=== PATIENT | female | born 1955 | race Two or more races ===

== ENCOUNTER 2022-02-22 09:19 | Outpatient (REF) | payer MEDICARE, SELFPAY ==
[2022-02-22 11:05] LABS: Alanine Aminotransferase 28 U/L (0-31); Albumin Level 4.4 g/dL (3.5-5.0); Alkaline Phosphatase 98 U/L (39-117); Anion Gap 10 (12-20); Aspartate Amino Transferase 28 U/L (5-31); Bilirubin Total 0.8 mg/dL (0.0-1.0); Blood Urea Nitrogen 22 mg/dL (9-16); Calcium 9.8 mg/dL (8.4-10.2); Carbon Dioxide 32 mmol/L (22-29); Chloride 101 mmol/L (96-108); Cholesterol 264 mg/dL; Estimated Glomerular Filt Rate > 60; Glucose Fasting 86 mg/dL (60-99); HDL Cholesterol 38 mg/dL; LDL Cholesterol Calculated 153 mg/dl; Potassium 3.9 mmol/L (3.3-5.1); Sodium 139 mmol/L (135-145); Total Protein 7.1 g/dL (6.5-8.0); Triglycerides 368 mg/dL
== END 2022-02-22 09:20 | disposition home or self-care (01) ==
LOC: HO.LAB 09:19
PROVIDERS: PCP Internal Medicine; Visit Provider Internal Medicine
DX: E78.5 Hyperlipidemia, unspecified (principal); I10 Essential (primary) hypertension; R74.8 Abnormal levels of other serum enzymes
CPT/HCPCS: 36415; 80053; 80061; 82550

== ENCOUNTER 2022-03-16 07:22 | Day surgery (SDC) | payer MEDICARE, SELFPAY ==
[2022-03-16 06:24] VITALS: BMI 30.8
[2022-03-16 08:00] VITALS: BP 164/98; PULSE 78; RESP 18; TEMP 36.1; O2SAT 96
[2022-03-16] MEDS: Lactated Ringers 1,000 ML 100 ML IVCONT (08:26)
--- NOTE | 2022-03-16 09:15 | MHC.SHP ---
Pre-Procedural Eval Section A Date of Service: 03/16/22 Section B Chief Complaint: screening Details of Present Illness: see H&P no changes Relevant Family History (Specify if Yes): No Relevant Social History: None Present Medications: see Short Stay Collaborative assessment Medical History: No relevant PMH History of Previous Operations: No relevant previous surgery Allergies: Allergies Allergy/AdvReac Type Severity Reaction Status Date / Time solifenacin [From Vesicare] AdvReac Intermediate Blurry Verified 02/21/22 09:22 Vision Review of Systems Sugical H&P ROS: Negative: Constitution, Cardiovascular, Respiratory, Neurological, Psychiatric, Hem-Onc, Allergic/Immunologic, Gastrointestinal, Genitourinary, Musculoskeletal, Integumentary, Endocrine and Eyes/Ears/Nose/Throat Exam Surgical H&P Exam: Normal: HEENT, Normal: Heart, Normal: Lungs, Normal: Extremities, Normal: Abdomen, Normal: Skin and Normal: Neurological Plan Diagnosis/Plan: Unchanged I have reviewed the history and physical and performed a pertinent physical examination on my patient. No changes have occurred unless specified. Time Spent With Patient Time: Total time managing care of this patient today ____ minutes.
--- NOTE | 2022-03-16 09:51 | PM.OP ---
Brief Operative Note Date of Service: 03/16/22 Pre-op diagnosis: screening Post-op diagnosis: same Procedure: colonoscopy Surgeon: Jose D Schulz Anesthesia: MAC Was an Machine Silk Screen Printer used for this Procedure?: No Estimated blood loss (mL): 0 Pathology: none sent Condition: stable Disposition: PACU
[2022-03-16 09:57] VITALS: BP 119/77; PULSE 78; RESP 18; TEMP 36.1; O2SAT 96
[2022-03-16 10:12] VITALS: BP 123/81; PULSE 74; RESP 18; TEMP 37.1; O2SAT 96
--- NOTE | 2022-03-16 11:05 | OP_ITS ---
SURGEON: Jose D Schulz MD INDICATIONS: Colon cancer screening. PREOPERATIVE DIAGNOSIS: POSTOPERATIVE DIAGNOSIS: PROCEDURE PERFORMED: Colonoscopy to the terminal ileum. ESTIMATED BLOOD LOSS: COMPLICATIONS: ANESTHESIA: Monitored anesthesia care. ASSISTANTS: SPECIMENS: DESCRIPTION OF PROCEDURE: The procedure was performed on 03/16/2022. The history and physical was performed. The risks and benefits of the procedure were explained to the patient. Informed consent was obtained. The patient was placed in the left lateral decubitus position. A digital rectal exam was performed and was found to be normal. The Olympus pediatric video colonoscope was introduced into the rectum and advanced to the cecum without difficulty. The cecum was identified by transillumination, palpation, and identification of the ileocecal valve. Abdominal wall pressure was used to assist in advancement of the scope due to looping in the sigmoid. Examination was performed. The scope was removed. She tolerated the procedure well and was taken to the recovery area in stable condition. FINDINGS: The terminal ileum was normal. The visualized colonic mucosa was normal. The quality of the prep was good. No polyps were identified. Retroflexed examination showed moderate-sized internal hemorrhoids. IMPRESSION: Normal colonoscopy. RECOMMENDATION: 1. Follow up as needed. 2. Repeat colonoscopy is recommended in 10 years for average risk individuals. MD MAGDALENO Tanner/NOAH / [id number]
--- NOTE | 2022-03-16 13:05 | HO.ANESPROP2 ---
[facility] Active Problems Active Problems: All Active Problems (Updated 02/21/22 @ 09:36 by Senait Del Rio MD) Essential hypertension (Acute) Obesity (BMI 30-39.9) (Acute) Pure hypercholesterolemia (Acute) Elevated CK (Acute) Shortness of breath (Acute) Family History Family History Mother Mental health disorder Father Mesothelioma Family history of problems with anesthesia: No Surgical History Surgical History (Updated 03/15/22 @ 12:31 by Alexsandra Erickson RN) History of dacryocystorhinostomy History of hand surgery History of lung surgery History of parathyroid surgery History of Problems with Anesthesia: No Social History Social History (Updated 02/21/22 @ 09:31 by Senait Del Rio MD) Housing: House Alcohol intake: current Alcohol intake frequency: holidays/special occasions only Alcohol type: hard liquor Patient Tobacco Use Status: Never used Tobacco e-Cigarette/Vaping Use: Never Used Second Hand Smoke Exposure: No Are you DNR?: No Advance Directives: No Advance Directives Information Provided: Yes service: No Current occupational status: employed Current occupational exposures/hazards: No Cognitive needs: No Hearing needs: No Vision needs: Yes Meds Allergies Allergy/AdvReac Type Severity Reaction Status Date / Time solifenacin [From Vesicare] AdvReac Intermediate Blurry Verified 02/21/22 09:22 Vision Home Medications Medication Instructions Recorded Confirmed Last Taken Type amlodipine 5 mg tablet 5 mg PO DAILY 02/21/22 03/16/22 03/16/22 History ezetimibe 10 mg tablet 10 mg PO DAILY 02/21/22 02/21/22 Unknown History hydrochlorothiazide 25 mg tablet 25 mg PO DAILY 02/21/22 03/16/22 03/13/22 History Exam Exam Date and Time: March 16, 2022 1305 Height,Weight and Vital Signs: Height 5 ft 7 in Weight 89.358 kg Last Vital Signs Temp 98.8 F 03/16/22 10:12 Pulse 74 03/16/22 10:12 Resp 18 03/16/22 10:12 BP 123/81 03/16/22 10:12 Pulse Ox 96 03/16/22 10:12 O2 Del Method 03/16/22 10:12 Airway Mallampati Class: II TM Dist: >3cm Neck ROM: Full Heart: rr Lungs: cta Assessment and Plan Final Anesthetic Review Family History of Problems with Anesthesia: No History of Problems with Anesthesia: No NPO: Yes ASA Class: II Final Preanesthetic Review: No Changes in Pt Med Stat, Meds/Allgs Chart Reviewed, Consent Obtained/Reviewed and Anes Risks/Benef Reviewed Patient Risk: Low Procedure Risk: Low Anesthetic Plan Anesthetic Plan: MAC: Disposition: Standard PACU
== END 2022-03-16 10:45 | disposition home or self-care (01) ==
PROVIDERS: PCP Internal Medicine; Visit Provider Internal Medicine Gastroenterology
PROC: 0DJD8ZZ Inspection of Lower Intestinal Tract, Via Natural or Artificial Opening Endoscopic (ICD-10-PCS; CPT 45378; principal; 2022-03-16 09:00)
DX: Z12.11 Encounter for screening for malignant neoplasm of colon (principal); K64.8 Other hemorrhoids; I10 Essential (primary) hypertension; E78.00 Pure hypercholesterolemia, unspecified; E21.3 Hyperparathyroidism, unspecified; Z79.899 Other long term (current) drug therapy; Z88.8 Allergy status to other drugs, medicaments and biological substances
CPT/HCPCS: G0121

== ENCOUNTER 2022-07-30 16:09 | Outpatient (REF) | payer MEDICARE, SELFPAY ==
[2022-07-30 18:31] LABS: Anion Gap 13 (12-20); Blood Urea Nitrogen 21 mg/dL (9-16); Calcium 9.6 mg/dL (8.4-10.2); Carbon Dioxide 30 mmol/L (22-29); Chloride 103 mmol/L (96-108); Estimated Glomerular Filt Rate > 60; Glucose Random 96 mg/dL (60-115); Potassium 3.8 mmol/L (3.3-5.1); Sodium 142 mmol/L (135-145)
[2022-07-30 18:43] LABS: Erythrocyte Sedimentation Rate 18 MM/HR (0-20)
== END 2022-07-30 16:10 | disposition home or self-care (01) ==
LOC: HO.LAB 16:09
PROVIDERS: PCP Internal Medicine; Visit Provider Physician Assistant
DX: R74.8 Abnormal levels of other serum enzymes (principal)
CPT/HCPCS: 36415; 80048; 82550; 85652

== ENCOUNTER 2022-08-08 07:03 | Outpatient (REF) | payer MEDICARE, SELFPAY ==
[2022-08-08 08:01] LABS: Alanine Aminotransferase 43 U/L (0-31); Albumin Level 4.1 g/dL (3.5-5.0); Alkaline Phosphatase 100 U/L (39-117); Anion Gap 12 (12-20); Aspartate Amino Transferase 32 U/L (5-31); Bilirubin Total 1.1 mg/dL (0.0-1.0); Blood Urea Nitrogen 25 mg/dL (9-16); Calcium 9.3 mg/dL (8.4-10.2); Carbon Dioxide 27 mmol/L (22-29); Chloride 106 mmol/L (96-108); Estimated Glomerular Filt Rate > 60; Glucose Random 102 mg/dL (60-115); Potassium 3.9 mmol/L (3.3-5.1); Sodium 141 mmol/L (135-145); Total Protein 6.6 g/dL (6.5-8.0)
[2022-08-08 08:18] LABS: Thyroid Stimulating Hormone 1.39 uIU/mL (0.32-4.0)
[2022-08-10 16:33] LABS: Calcium (PTHI) 9.3 mg/dL (8.6-10.4); PTHI 43 pg/mL (16-77)
== END 2022-08-08 07:04 | disposition home or self-care (01) ==
LOC: HO.LAB 07:03
PROVIDERS: PCP Internal Medicine; Visit Provider Internal Medicine
DX: R74.8 Abnormal levels of other serum enzymes (principal); E66.9 Obesity, unspecified
CPT/HCPCS: 36415; 80053; 82550; 83970; 84443

== ENCOUNTER → 2022-08-28 15:39 | Outpatient (BNVA) | payer MEDICARE, SELFPAY | PROVIDERS: PCP Internal Medicine; Referring Provider Physician Assistant; Visit Provider Surgery | DX: R74.8 Abnormal levels of other serum enzymes (principal) | CPT/HCPCS: 99202 ==

== ENCOUNTER 2022-08-31 10:56 | Outpatient (REF) | payer MEDICARE, SELFPAY ==
[2022-08-31 12:30] LABS: Troponin-I High Sensitivity < 2.7 ng/L (<3.5-17.0)
[2022-08-31 12:39] LABS: Alanine Aminotransferase 43 U/L (0-31); Albumin Level 4.3 g/dL (3.5-5.0); Alkaline Phosphatase 94 U/L (39-117); Anion Gap 13 (12-20); Aspartate Amino Transferase 27 U/L (5-31); Bilirubin Total 1.1 mg/dL (0.0-1.0); Blood Urea Nitrogen 23 mg/dL (9-16); Calcium 9.8 mg/dL (8.4-10.2); Carbon Dioxide 25 mmol/L (22-29); Chloride 103 mmol/L (96-108); Estimated Glomerular Filt Rate > 60; Glucose Random 85 mg/dL (60-115); Lactate Dehydrogenase 231 U/L (122-220); Sodium 137 mmol/L (135-145); Total Protein 7.2 g/dL (6.5-8.0)
[2022-09-07 15:18] LABS: Aldolase 8.1 U/L (<=8.1)
== END 2022-08-31 10:57 | disposition home or self-care (01) ==
LOC: HO.LAB 10:56
PROVIDERS: PCP Internal Medicine; Visit Provider Internal Medicine
DX: R74.8 Abnormal levels of other serum enzymes (principal)
CPT/HCPCS: 36415; 80053; 82085; 82550; 83615; 84484

== ENCOUNTER 2022-09-04 10:07 | Outpatient (REF) | payer MEDICARE, SELFPAY ==
[2022-09-04 10:32] VITALS: BP 142/70; PULSE 71; RESP 15; TEMP 36; O2SAT 95
[2022-09-04 10:34] VITALS: BMI 31.8
[2022-09-04 11:32] VITALS: BP 164/76; PULSE 67; RESP 16; O2SAT 94
--- NOTE | 2022-09-04 11:36 | P.OP_ITS ---
Operative Note Operative Note Date of Service: 09/04/22 Narrative: Preoperative diagnosis: Diffuse muscle stiffness, elevated CK levels, possible polymyositis Postoperative diagnosis: Same Procedure: Right leg muscle biopsy (right vastus lateralis muscle). Surgeon: Aakash Salazar MD Dentofacial Orthopedics Dentist: None Anesthesia: Sensorcaine 0.5% with epinephrine, bicarbonate Indications for procedure: 67-year-old female patient with complaints of diffuse muscle stiffness making ambulation difficult. She has persistently elevated CK levels despite resting laxation. She presents today for muscle biopsy to evaluate for polymyositis Operative findings: Normal appearing muscle Specimen: Muscle biopsy x2 right leg Estimated blood loss: 2 mL Complications: None Procedure details: Patient was brought to the minor surgery suite placed in a supine position. After assuring informed consent the patient is upper right leg was prepped with Betadine and draped in a sterile fashion. A longitudinal incision was then made over the lateral right thigh measuring approximately 4 cm in length. The incision was carried out through subcutaneous tissue through muscle fascia and up to the vastus lateralis muscle. Blunt dissection was then used to elevate portion of the muscle measuring approximately 3 cm in length and 0.5 cm wide. This was placed within a muscle biopsy clamp and the muscle excised using Metzenbaum scissors. A 2nd specimen was obtained in a similar fashion immediately wrapped in saline soaked gauze. This was immediately sent for pathologic evaluation. After assuring hemostasis, the deep subcutaneous tissue was reapproximated using interrupted 3-0 Polysorb sutures. Dermis was reapproximated using interrupted 3-0 Polysorb sutures. Skin was closed using a running subcuticular 4-0 Polysorb suture. Steri-Strips, 2 x 2 gauze and Tegaderm were then applied. The patient tolerated the procedure well. She was discharged to home in stable condition.
== END 2022-09-04 10:08 | disposition home or self-care (01) ==
LOC: HO.MS 10:07
PROVIDERS: PCP Internal Medicine; Visit Provider Surgery
PROC: (CPT 20200; principal; 2022-09-04 10:30)
DX: R74.8 Abnormal levels of other serum enzymes (principal)
CPT/HCPCS: 20200; 88300; 88305; 88313; 88319; 88341; 88342; 88348

== ENCOUNTER 2022-09-18 09:59 | Outpatient (REF) | payer MEDICARE, SELFPAY ==
[2022-09-21 20:42] LABS: CK-BB None Detected (None Detected); CK-MB 5 % (<5); CK-MM 89 % (95-100); Creatine Kinase,Total,Serum 432 U/L (29-143)
== END 2022-09-18 10:00 | disposition home or self-care (01) ==
LOC: HO.LAB 09:59
PROVIDERS: PCP Internal Medicine; Visit Provider Internal Medicine
DX: R74.8 Abnormal levels of other serum enzymes (principal)
CPT/HCPCS: 36415; 82550; 82552

== ENCOUNTER → 2022-09-20 09:41 | Outpatient (BNVA) | payer MEDICARE, SELFPAY | PROVIDERS: PCP Internal Medicine; Visit Provider Surgery ==

== ENCOUNTER 2022-09-21 12:44 | Outpatient (REF) | payer MEDICARE, SELFPAY ==
[2022-09-21 13:44] LABS: Anion Gap 15 (12-20); Blood Urea Nitrogen 21 mg/dL (9-16); Carbon Dioxide 26 mmol/L (22-29); Chloride 103 mmol/L (96-108); Estimated Glomerular Filt Rate > 60; Glucose Random 95 mg/dL (60-115); Magnesium 2.1 mg/dL (1.6-2.6); Potassium 3.4 mmol/L (3.3-5.1); Sodium 141 mmol/L (135-145)
[2022-09-21 15:05] LABS: Creatinine Urine 71.26 mg/dL; Microalbum/Creatinine Ratio Ur 8.4 ug/mg cr
[2022-09-22 10:09] LABS: Carbohydrate Antigen 19-9 22 U/mL (<34)
[2022-09-24 09:53] LABS: IgA 112 mg/dL (70-320); IgG 1280 mg/dL (600-1540); IgM 56 mg/dL (50-300)
[2022-09-28 11:58] LABS: Vitamin C 0.9 mg/dL (0.3-2.7)
== END 2022-09-21 12:45 | disposition home or self-care (01) ==
LOC: HO.LAB 12:44
PROVIDERS: PCP Physician Assistant; Visit Provider Physician Assistant
DX: R74.8 Abnormal levels of other serum enzymes (principal)
CPT/HCPCS: 36415; 80048; 82043; 82180; 82550; 82784; 83735; 86301

== ENCOUNTER 2022-10-03 10:40 | Outpatient (REF) | payer MEDICARE, SELFPAY ==
[2022-10-03 12:22] LABS: Rheumatoid Factor < 13.0 IU/mL (<15.0)
[2022-10-08 15:48] LABS: Cyclic Citrullinated Peptide <16 UNITS
[2022-10-08 23:03] LABS: Anti DNA DS Antibody 1 IU/mL
[2022-10-11 13:54] LABS: Anti Nuclear Antibody Screen POSITIVE (NEGATIVE)
== END 2022-10-03 10:41 | disposition home or self-care (01) ==
LOC: HO.LAB 10:40
PROVIDERS: PCP Physician Assistant; Visit Provider Physician Assistant
DX: M25.50 Pain in unspecified joint (principal)
CPT/HCPCS: 36415; 86038; 86039; 86200; 86225; 86431

== ENCOUNTER 2022-10-05 13:26 | Outpatient (REF) | payer MEDICARE, SELFPAY ==
[2022-10-09 02:27] LABS: A. Phagocytphilium DNA,RT-PCR NOT DETECTED (NOT DETECTED); Babesia Microti DNA, RT-PCR NOT DETECTED (NOT DETECTED); Borrelia Miyamotoi,DNA RT-PCR NOT DETECTED (NOT DETECTED); E.Chaffeensis DNA RT-PCR NOT DETECTED (NOT DETECTED); Lyme(Borrelia ssp)DNA RT-PCR NOT DETECTED (NOT DETECTED)
[2022-10-12 17:18] LABS: Vitamin C 0.7 mg/dL (0.3-2.7)
== END 2022-10-05 13:27 | disposition home or self-care (01) ==
LOC: HO.LAB 13:26
PROVIDERS: PCP Physician Assistant; Visit Provider Physician Assistant
DX: R74.8 Abnormal levels of other serum enzymes (principal)
CPT/HCPCS: 36415; 82180; 82550; 87798; 87801

== ENCOUNTER 2022-10-09 16:02 | Outpatient (REF) | payer MEDICARE, MEDICAID, SELFPAY ==
--- NOTE | ~2022-10-09 | US_ITS ---
EXAMINATION: US RETROPERITONEAL LIMITED (RENAL ONLY) CLINICAL INFORMATION: Abnormal levels of other serum enzymes. Elevated CK level. COMPARISON: None available. TECHNIQUE: Real-time imaging of the kidneys. FINDINGS: RIGHT KIDNEY: 10.5 x 4.9 x 5.4 cm (SAG x AP x TRV). The kidney is normal in size, contour, and echogenicity. Renal cortical thickness is normal. No calculi or focal parenchymal lesions. No hydronephrosis. LEFT KIDNEY: 12.1 x 5.6 x 5.5 cm (SAG x AP x TRV). The kidney is normal in size, contour, and echogenicity. Renal cortical thickness is normal. No renal calculi or hydronephrosis. 1.1 x 1.3 x 1.5 cm simple upper pole parapelvic cyst is seen. No imaging follow-up is recommended. US/US renal BI IMPRESSION: Study within normal limits.
== END 2022-10-09 16:03 | disposition home or self-care (01) ==
LOC: HO.US 16:02
PROVIDERS: Visit Provider Physician Assistant
DX: R74.8 Abnormal levels of other serum enzymes (principal); I10 Essential (primary) hypertension
CPT/HCPCS: 76775

== ENCOUNTER 2022-11-16 11:09 | Outpatient (REF) | payer MEDICARE, SELFPAY ==
--- NOTE | ~2022-11-16 | XR_ITS ---
EXAMINATION: XR SHOULDER, RIGHT XR SHOULDER, LEFT CLINICAL INFORMATION: Pain in the shoulders. COMPARISON: None TECHNIQUE: AP external rotation, Grashey, scapular Y, and axillary views of each shoulder. FINDINGS: RIGHT SHOULDER: Severe glenohumeral osteoarthritis is characterized by nonuniform joint space narrowing, marginal osteophytes, and articular sclerosis. Moderate osteoarthritis is also present at the right acromioclavicular joint. Bones are osteopenic. Soft tissues are unremarkable. LEFT SHOULDER: Moderate glenohumeral osteoarthritis with nonuniform joint space narrowing and marginal osteophytes. Moderate osteoarthritis is also present in the acromioclavicular joint. No fracture or malalignment. Bones are osteopenic. Soft tissues are unremarkable. XR/XR shoulder RT min 2V IMPRESSION: 1. Severe right and moderate left glenohumeral osteoarthritis. 2. Moderate bilateral acromioclavicular osteoarthritis. 3. No acute osseous findings.
--- NOTE | ~2022-11-16 | XR_ITS ---
EXAMINATION: XR HAND, RIGHT XR HAND, LEFT CLINICAL INFORMATION: Pain in the left and right hand. Joint fused. COMPARISON: None available. TECHNIQUE: PA, lateral, and oblique views of each hand. FINDINGS: RIGHT HAND: Severe 1st CMC osteoarthritis is characterized by severe nonuniform joint space narrowing, articular cortical irregularity, articular cortical remodeling, marginal osteophytes, and osteophyte fragmentation. Small marginal osteophytes are present in multiple interphalangeal joints. Minimal osteoarthritis at the triscaphe joint. Joints otherwise relatively well-preserved. Chondrocalcinosis is present in the radiocarpal joint in the region of the TFCC and intrinsic wrist ligaments of the proximal carpal row. Bones are osteopenic. No erosions. LEFT HAND: Status post 1st CMC arthroplasty with trapezium resection and 1st MCP joint arthrodesis with a longitudinal intramedullary screw fusion construct. No appreciable osseous bridging is seen at the 1st MCP joint. Hardware appears appropriately positioned. There is mild multifocal osteoarthritis in the interphalangeal joints. No fracture or malalignment. No erosions. Bones are osteopenic. XR/XR hand LT min 3V IMPRESSION: 1. 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 2. Mild multifocal osteoarthritis in the interphalangeal joints bilaterally. 3. Status post left 1st CMC arthroplasty and 1st MCP joint arthrodesis. No appreciable osseous bridging at the 1st MCP joint. 4. Osteopenia.
--- NOTE | ~2022-11-16 | XR_ITS ---
EXAMINATION: XR SHOULDER, RIGHT XR SHOULDER, LEFT CLINICAL INFORMATION: Pain in the shoulders. COMPARISON: None TECHNIQUE: AP external rotation, Grashey, scapular Y, and axillary views of each shoulder. FINDINGS: RIGHT SHOULDER: Severe glenohumeral osteoarthritis is characterized by nonuniform joint space narrowing, marginal osteophytes, and articular sclerosis. Moderate osteoarthritis is also present at the right acromioclavicular joint. Bones are osteopenic. Soft tissues are unremarkable. LEFT SHOULDER: Moderate glenohumeral osteoarthritis with nonuniform joint space narrowing and marginal osteophytes. Moderate osteoarthritis is also present in the acromioclavicular joint. No fracture or malalignment. Bones are osteopenic. Soft tissues are unremarkable. XR/XR shoulder LT min 2V IMPRESSION: 1. Severe right and moderate left glenohumeral osteoarthritis. 2. Moderate bilateral acromioclavicular osteoarthritis. 3. No acute osseous findings.
--- NOTE | ~2022-11-16 | XR_ITS ---
EXAMINATION: XR HAND, RIGHT XR HAND, LEFT CLINICAL INFORMATION: Pain in the left and right hand. Joint fused. COMPARISON: None available. TECHNIQUE: PA, lateral, and oblique views of each hand. FINDINGS: RIGHT HAND: Severe 1st CMC osteoarthritis is characterized by severe nonuniform joint space narrowing, articular cortical irregularity, articular cortical remodeling, marginal osteophytes, and osteophyte fragmentation. Small marginal osteophytes are present in multiple interphalangeal joints. Minimal osteoarthritis at the triscaphe joint. Joints otherwise relatively well-preserved. Chondrocalcinosis is present in the radiocarpal joint in the region of the TFCC and intrinsic wrist ligaments of the proximal carpal row. Bones are osteopenic. No erosions. LEFT HAND: Status post 1st CMC arthroplasty with trapezium resection and 1st MCP joint arthrodesis with a longitudinal intramedullary screw fusion construct. No appreciable osseous bridging is seen at the 1st MCP joint. Hardware appears appropriately positioned. There is mild multifocal osteoarthritis in the interphalangeal joints. No fracture or malalignment. No erosions. Bones are osteopenic. XR/XR hand RT min 3V IMPRESSION: 1. 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 2. Mild multifocal osteoarthritis in the interphalangeal joints bilaterally. 3. Status post left 1st CMC arthroplasty and 1st MCP joint arthrodesis. No appreciable osseous bridging at the 1st MCP joint. 4. Osteopenia.
== END 2022-11-16 11:10 | disposition home or self-care (01) ==
LOC: HO.XRAY 11:09
PROVIDERS: PCP Physician Assistant; Visit Provider Physician Assistant
DX: M25.511 Pain in right shoulder (principal); M25.512 Pain in left shoulder; M79.641 Pain in right hand; M79.642 Pain in left hand; M62.89 Other specified disorders of muscle
CPT/HCPCS: 36415; 73030; 73130; 82550

== ENCOUNTER 2022-12-14 06:47 | Outpatient (REF) | payer MEDICARE, SELFPAY ==
[2022-12-14 08:42] LABS: Alanine Aminotransferase 45 U/L (0-31); Albumin Level 4.2 g/dL (3.5-5.0); Alkaline Phosphatase 92 U/L (39-117); Anion Gap 14 (12-20); Aspartate Amino Transferase 27 U/L (5-31); Bilirubin Total 0.5 mg/dL (0.0-1.0); Blood Urea Nitrogen 22 mg/dL (9-16); Calcium 9.5 mg/dL (8.4-10.2); Carbon Dioxide 27 mmol/L (22-29); Chloride 104 mmol/L (96-108); Cholesterol 282 mg/dL (<200); Estimated Glomerular Filt Rate > 60; Glucose Fasting 95 mg/dL (60-99); HDL Cholesterol 37 mg/dL (>40); Potassium 3.6 mmol/L (3.3-5.1); Sodium 141 mmol/L (135-145); Total Protein 7.5 g/dL (6.5-8.0); Triglycerides 599 mg/dL (<150)
== END 2022-12-14 06:48 | disposition home or self-care (01) ==
LOC: HO.LAB 06:47
PROVIDERS: PCP Physician Assistant; Referring Provider Internal Medicine; Visit Provider Physician Assistant
DX: M62.89 Other specified disorders of muscle (principal); E78.5 Hyperlipidemia, unspecified; I10 Essential (primary) hypertension
CPT/HCPCS: 36415; 80053; 80061; 82550

== ENCOUNTER 2022-12-20 09:45 | Outpatient (AMB) | payer MEDICARE, SELFPAY ==
[2022-12-20 09:50] VITALS: BP 132/88; PULSE 78; RESP 17; O2SAT 95; BMI 32.0
--- NOTE | 2022-12-20 09:50 | MHC.PC.OV ---
Vital Signs 12/20/22 09:50 Height 5 ft 6 in Weight 198 lb BMI 32.0 BP 132/88 Blood Pressure Location Lt brachial Position Sitting Respiration 17 Pulse 78 Pulse Source Pulse Oximeter Pulse Oximetry (%) 95 Oxygen Delivery Method Room Air Intake Visit Reasons: pe Intake Note: Patient is here today for a physical. Accompanied by: Self / Same As Patient Allergies solifenacin [From Vesicare] Adverse Reaction (Intermediate, Verified 12/20/22 10:08) Blurry Vision Medication List - Last Reconciled 12/20/22 by Herb Flores PA-C amlodipine 5 mg PO DAILY 90 days hydrochlorothiazide 25 mg PO DAILY 90 days Tobacco use date assessed: 09/20/22 Fall risk assessment: No Falls in past year Last assessed Fall Risk: 12/20/22 Dental Screening Dental Screen Date: 12/20/22 Did you have a dental visit in the last 12 months?: Yes Did you have a dental problem in the last 6 months where you did not have access to dental care?: No Was dental information given to patient?: Patient has dentist HPI pe HPI Details Patient is a 67-year-old female here today for an annual physical. Patient has a past medical history significant for hypertension, hyperlipidemia, chronic muscle tightness with elevations in her CPKs. .. Elevated CPK: No clear diagnosis at this time though patient continues to be symptomatic with muscle tightness though no pain or weakness. She is fairly active as she cycles 10-20 miles per day. Was previously on a cholesterol medication which has been stopped due to elevated CPKs as well. Has recently got muscle biopsy without any evidence muscular disease. Has seen wire weaver helper in the past though have not been able to get formal diagnosis for her elevated CPK levels. Of note does elevated SASCHA No her CPK level was able to decrease with increased fluids and vitamin-C / electrolytes which seems to helped decrease her CK levels. She will be trying to establish care with the retail selling specialist /wire weaver helper in near future. She feels comfortable with her CPK levels being around 500. Of note renal functions have been stable. .. Hypertriglyceridemia: Most recent labs have noted elevated triglycerides and total cholesterol. Has been on fibrates in the past though due to his CK levels these have been discontinued. She will like to try vitamin B3( niacin) and continue working on lifestyle modifications .. Hypertension: Blood pressure today in office acceptable. Will continue amlodipine and hydrochlorothiazide. Colon cancer screening: done in 2021- normal repeat 10 years Mammogram: Gets them done [facility] annually up-to-date mammogram DELIVERY SUPERVISOR: Does see a DELIVERY SUPERVISOR Vaccine: Up-to-date with COVID vaccine, tetanus vaccine, shingles vaccine, needs pneumonia vaccine Laboratory Tests 02/22/22 07/30/22 07/30/22 09:34 16:22 16:22 ESR 18 BUN Creatinine Lactate Dehydrogen ase Total Creatine Kin ase 575 H 734 H Triglycerides 368 Cholesterol 264 HDL Cholesterol 08/08/22 08/31/22 08/31/22 07:20 11:14 11:14 ESR BUN 23 H Creatinine 0.80 Lactate Dehydrogen ase 231 H Total Creatine Kin ase 812 H 448 H Triglycerides Cholesterol HDL Cholesterol 09/18/22 10/05/22 11/16/22 10:05 13:45 11:19 ESR BUN Creatinine Lactate Dehydrogen ase Total Creatine Kin ase 508 H 466 H 508 H Triglycerides Cholesterol HDL Cholesterol 12/14/22 06:57 ESR BUN Creatinine 0.81 Lactate Dehydrogen ase Total Creatine Kin ase 501 H Triglycerides 599 H Cholesterol 282 H HDL Cholesterol 37 L [facility] Surgical History History of surgical biopsy (09/04/22) History of dacryocystorhinostomy History of lung surgery History of parathyroid surgery History of hand surgery Family History Mother Mental health disorder Father Mesothelioma Social History (Updated 12/20/22 @ 10:15 by Herb Flores PA-C) Housing: House Alcohol intake: current Alcohol intake frequency: a few times a month Alcohol type: hard liquor Patient Tobacco Use Status: Never used Tobacco e-Cigarette/Vaping Use: Never Used Second Hand Smoke Exposure: No service: No Current occupational status: employed 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 Current occupational exposures/hazards: No Cognitive needs: No Hearing needs: No Vision needs: Yes Questionnaire Thrive Questionnaire Date Thrive assessed: 12/20/22 I am a: Patient What is your living situation today?: I have a steady place to live Within the past 12 months, did the food you bought not last and you didn't have the money to get more?: Never true Within the past 12 months, did you worry whether your food would run out before you got money to buy more?: Never true Do you have trouble paying for medicines?: No Do you have trouble getting transportation to medical appointments?: No Do you have trouble paying your heating and electricity bill?: No Do you have trouble taking care of your child, family member or friend?: No Do you have trouble with day-to-day activities such as bathing, preparing meals, shopping, managing finances, etc.?: No Are you currently unemployed and looking for a job?: No Are you interested in more education?: No Please select the resources that you would like help with: None Currently or been in a relationship where the following occur: no concerns reported MI-7 AMB Questionnaire MI-7 Date MI - 7 assessed: 06/25/22 Source: Developed by Drs. Rayray Varghese, Norah Alfonso, Marty Echavarria and colleagues, with an educational eloina from [employer]. Review of Systems Const Denies body aches, Denies chills, Denies excessive sweating, Denies fatigue, Denies fever(s) and Denies headache(s) Eyes Denies blurry vision ENT Denies dysphagia, Denies vertigo, Denies dizziness, Denies headache(s), Denies hearing loss and Denies tinnitus Card Denies chest pain, Denies chest pain with activity, Denies syncope, Denies irregular heart rhythm and Denies dyspnea Resp Denies chest congestion, Denies cough, Denies hemoptysis, Denies dyspnea and Denies wheezing GI Denies abdominal pain, Denies melena, Denies hematochezia, Denies coffee ground emesis, Denies dysphagia, Denies diarrhea, Denies nausea and Denies vomiting Denies urinary frequency, Denies dysuria, Denies urinary hesitancy and Denies urinary urgency Musc Reports arthralgias, Denies limited range of motion, Denies muscle cramps and Denies muscle weakness Skin/Breast Denies rash and Denies skin ulcer Neuro Denies Abnormal speech present, Denies confusion, Denies vertigo, Denies dizziness, Denies syncope, Denies headache(s), Denies memory loss and Denies seizure-like activity Psych Denies anxiety, Denies confusion, Denies depression, Denies memory loss, Denies panic attacks and Denies paranoia Endo Denies excessive sweating, Denies fatigue, Denies flushing, Denies polydipsia and Denies polyuria Aller/Immun Denies wheezing Physical exam (Primary Care) Vital Signs: Last Vital Signs Pulse 78 12/20/22 09:50 Resp 17 12/20/22 09:50 BP 132/88 12/20/22 09:50 Pulse Ox 95 12/20/22 09:50 Oxygen Delivery Method Room Air 12/20/22 09:50 BMI result Body Mass Index 32.0 BMI Assessment/Plan discussion: High Tobacco/Smoking Status: Tobacco use Status Tobacco use date assessed 09/20/22 12/20/22 09:52 Patient Tobacco Use Status Never used Tobacco 12/20/22 10:15 e-Cigarette/Vaping Use Never Used 12/20/22 10:15 Thrive Assessment: Date of Thrive Assessment Date Thrive assessed 12/20/22 12/20/22 09:58 Currently or been in a relationship where the following occur: no concerns reported Const Other: Obese General: cooperative, comfortable, no acute distress, alert and awake; No confusion Orientation/consciousness: oriented to person, oriented to place, patient oriented x3 and No confusion HENMT Head: Yes normocephalic Ears: external ears normal and TM's normal bilaterally Face and sinus: No sinus tenderness Mouth: Normal oral and palatal mucosa present and tongue normal Teeth and gingiva: dentition normal and gingiva normal Throat: Yes posterior oropharynx normal, Yes tonsils normal and Yes uvula midline Eyes Conjunctivae: conjunctivae normal Sclerae: sclerae normal Pupils: Equal, round and reactive pupils present EOM: EOMs intact bilaterally Direct Ophthalmoscopy: No no photophobia Neck Neck: Yes no lymphadenopathy, No tender and Yes no JVD Thyroid: Thyroid normal Carotids: no bruits Chest Chest palpation & inspection: no tenderness Resp Effort & Inspection: normal respiratory effort, no audible wheezes, not labored and no stridor Auscultation: no crackles, no rales, no rhonchi and no wheezes Cardio Jugular venous distension: no JVD Rate: regular rate, not bradycardic and not tachycardic Rhythm: regular rhythm Bruits: no carotid bruits Peripheral pulses: Peripheral pulses 2+ throughout GI Inspection: Yes normal to inspection, No abdominal wall ecchymosis and No visible herniation Palpation (GI): Soft to palpation, nontender, no guarding, not rigid and No hepatosplenomegaly present Auscultation: normoactive bowel sounds General: Yes no CVA tenderness Back/Spine/Pelvis Back: no CVA tenderness and No back tenderness Cervical Spine: cervical ROM normal Thoracic/Lumbar Spine: thoracic and lumbar spine normal to inspection, straight leg raise negative bilaterally, No thoraco-lumbar ROM limited and No lumbar spinal tenderness Skin Lesions: no lesions Rashes: no rashes Wounds: no wounds Neuro General: oriented to person, oriented to place, patient oriented x3, CN's II-XI intact bilaterally and No confusion Cranial nerves: Yes Equal, round and reactive pupils present and Yes Normal accommodation reflex present Cognition (Neuro): normal cognition Speech: No Abnormal speech present Gait exam (Neuro): Normal gait present Motor exam (neuro): 5/5 motor strength present throughout Extrem Right upper extremity: full ROM; no cyanosis Left upper extremity: full ROM; no cyanosis Right lower extremity: no edema Left lower extremity: no edema Psych Appearance: grossly normal Mental Status: mental status grossly normal Affect: normal affect Attitude: cooperative Thought process: Normal thought process present Assessment and Plan Assessment & Plan (1) Annual physical exam: Code(s): Z00.00 - Encounter for general adult medical examination without abnormal findings (2) Elevated CK: Code(s): R74.8 - Abnormal levels of other serum enzymes Plan: Unclear diagnosis for patient's elevated CPK levels. Unclear if related to her physical activity. Has gotten muscle biopsy without any evidence of muscle disease. Patient's renal function stable and ESR without any elevation. Due to patient's fear renal failure and reassurance will continue to monitor CPK levels on a monthly basis.. She will be trying to establish care with retail selling specialist in near future. (3) Mixed hyperlipidemia: Code(s): E78.2 - Mixed hyperlipidemia Plan: Noted most recent lipid panel showing elevated total cholesterol and very elevated triglycerides. Has stopped cholesterol medication due to elevations her CPK. Explain the risk for pancreatitis with triglycerides above 100 and patient does understand. Will consider restarting fibrate. She will try vitamin B3 first (4) Obese: Code(s): E66.9 - Obesity, unspecified Qualifiers: Obesity type: due to excess calories Obesity classification: adult class 1 (BMI 30 - 34.9) Serious obesity comorbidity presence: without serious comorbidity Body mass index: BMI 32.0-32.9 Qualified Code(s): E66.09 - Other obesity due to excess calories; Z68.32 - Body mass index [BMI] 32.0-32.9, adult Plan: She does understand BMI is over 30 will work on continuing to be physically active and adapting to some better eating habits to reduce her weight. Orders: Orders Vitamin C Today R74.8 - Abnormal levels of other serum enzymes Lipid Panel Today E78.2 - Mixed hyperlipidemia Microalbumin, Random (w Creat) Today I10 - Essential (primary) hypertension Comprehensive [place]. Panel Fast Today I10 - Essential (primary) hypertension Coding Level of Care Code Est Pt Prev Care >65y(30105) Diagnoses Annual physical exam Z00.00 Elevated CK R74.8 Mixed hyperlipidemia E78.2 Class 1 obesity due to excess calories without serious comorbidity with body mass index (BMI) of 32.0 to 32.9 in adult E66.09; Z68.32 Obesity type: due to excess calories Obesity classification: adult class 1 (BMI 30 - 34.9) Serious obesity comorbidity presence: without serious comorbidity Body mass index: BMI 32.0-32.9
== END 2022-12-20 10:41 | disposition home or self-care (01) ==
PROVIDERS: PCP Internal Medicine; Visit Provider Physician Assistant
DX: Z00.00 Encounter for general adult medical examination without abnormal findings (principal); R74.8 Abnormal levels of other serum enzymes; E66.09 Other obesity due to excess calories; Z68.32 Body mass index [BMI] 32.0-32.9, adult; E78.2 Mixed hyperlipidemia
CPT/HCPCS: 99397

== ENCOUNTER 2023-01-11 10:07 | Outpatient (REF) | payer MEDICARE, SELFPAY ==
[2023-01-11 11:42] LABS: Creatinine Urine 35.17 mg/dL; Microalbumin Urine < 5.0 mg/L
[2023-01-14 12:52] LABS: Immunoglobulin A 116 mg/dL (70-320); Immunoglobulin G 1298 mg/dL (600-1540)
[2023-01-17 11:29] LABS: Vitamin C 1.2 mg/dL (0.3-2.7)
== END 2023-01-11 10:08 | disposition home or self-care (01) ==
LOC: HO.LAB 10:07
PROVIDERS: PCP Physician Assistant; Visit Provider Physician Assistant
DX: R74.8 Abnormal levels of other serum enzymes (principal); I10 Essential (primary) hypertension
CPT/HCPCS: 36415; 82180; 82550; 82570; 82784

== ENCOUNTER 2023-03-04 16:53 | Outpatient (REF) | payer MEDICARE, SELFPAY ==
[2023-03-08 14:59] LABS: IGF-1 (Somatomedin C) 169 ng/mL (41-279); IGF-1 Z Score (Female) 0.9 SD (-2.0 - +2.0)
== END 2023-03-04 16:54 | disposition home or self-care (01) ==
LOC: HO.LAB 16:53
PROVIDERS: PCP Physician Assistant; Visit Provider Physician Assistant
DX: R74.8 Abnormal levels of other serum enzymes (principal); E66.9 Obesity, unspecified
CPT/HCPCS: 36415; 82550; 84305

== ENCOUNTER 2023-05-01 08:44 | Outpatient (REF) | payer MEDICARE, SELFPAY ==
[2023-05-01 10:26] LABS: Alanine Aminotransferase 45 U/L (0-31); Albumin Level 4.2 g/dL (3.5-5.0); Alkaline Phosphatase 90 U/L (39-117); Anion Gap 12 (12-20); Aspartate Amino Transferase 33 U/L (5-31); Bilirubin Total 0.7 mg/dL (0.0-1.0); Blood Urea Nitrogen 20 mg/dL (9-16); Calcium 9.6 mg/dL (8.4-10.2); Carbon Dioxide 27 mmol/L (22-29); Chloride 105 mmol/L (96-108); Cholesterol 281 mg/dL (<200); Estimated Glomerular Filt Rate > 60; Glucose Fasting 75 mg/dL (60-99); HDL Cholesterol 41 mg/dL (>40); Potassium 3.6 mmol/L (3.3-5.1); Sodium 140 mmol/L (135-145); Total Protein 7.5 g/dL (6.5-8.0); Triglycerides 470 mg/dL (<150)
== END 2023-05-01 08:45 | disposition home or self-care (01) ==
LOC: HO.LAB 08:44
PROVIDERS: PCP Physician Assistant; Visit Provider Physician Assistant
DX: R74.8 Abnormal levels of other serum enzymes (principal); E78.2 Mixed hyperlipidemia; I10 Essential (primary) hypertension
CPT/HCPCS: 36415; 80053; 80061; 82550

== ENCOUNTER 2023-05-22 07:42 | Outpatient (REF) | payer MEDICARE, SELFPAY ==
[2023-05-22 09:00] LABS: Alanine Aminotransferase 28 U/L (0-31); Albumin Level 4.3 g/dL (3.5-5.0); Alkaline Phosphatase 95 U/L (39-117); Anion Gap 13 (12-20); Aspartate Amino Transferase 24 U/L (5-31); Blood Urea Nitrogen 27 mg/dL (9-16); Carbon Dioxide 28 mmol/L (22-29); Chloride 103 mmol/L (96-108); Cholesterol 282 mg/dL (<200); Estimated Glomerular Filt Rate > 60; Glucose Fasting 97 mg/dL (60-99); Glucose Random 96 mg/dL (60-115); HDL Cholesterol 43 mg/dL (>40); LDL Cholesterol Calculated 195 mg/dL (<100); Potassium 3.6 mmol/L (3.3-5.1); Sodium 140 mmol/L (135-145); Total Protein 7.6 g/dL (6.5-8.0); Triglycerides 221 mg/dL (<150)
== END 2023-05-22 07:43 | disposition home or self-care (01) ==
LOC: HO.LAB 07:42
PROVIDERS: PCP Physician Assistant; Visit Provider Physician Assistant
DX: I10 Essential (primary) hypertension (principal); R74.8 Abnormal levels of other serum enzymes; E78.2 Mixed hyperlipidemia
CPT/HCPCS: 36415; 80048; 80053; 80061; 82550

== ENCOUNTER 2023-05-22 07:58 | Outpatient (AMB) | payer MEDICARE, SELFPAY ==
--- NOTE | 2023-05-22 08:09 | MHC.PC.OV ---
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 Accompanied by: Self / Same As Patient Allergies solifenacin [From Vesicare] Adverse Reaction (Intermediate, Verified 05/22/23 08:19) Blurry Vision Medication List - Last Reconciled 05/22/23 by Herb lFores PA-C amlodipine 5 mg PO DAILY 90 days hydrochlorothiazide 25 mg PO DAILY 90 days Tobacco use date assessed: 05/22/23 Fall risk assessment: 1 Fall in past year Last assessed Fall Risk: 05/22/23 Dental Screening Dental Screen Date: 05/22/23 Did you have a dental visit in the last 12 months?: Yes Did you have a dental problem in the last 6 months where you did not have access to dental care?: No Was dental information given to patient?: Patient has dentist HPI f/u HTN / HLD HPI Details Patient is a 67-year-old female here today for a follow-up visit. Patient has a past medical history significant for hypertension, hyperlipidemia, chronic muscle tightness with elevations in her CPKs. Concern--> reports noticing a skin lesion on the top her scalp over the last several weeks. She is interested in seeing a tennis desk team member removal and biopsy. .. Elevated CPK: No clear diagnosis at this time though patient continues to be symptomatic with muscle tightness though no pain or weakness. She is fairly active as she cycles 10-20 miles per day. Was previously on a cholesterol medication which has been stopped due to elevated CPKs as well. Has underwent muscle biopsy without any evidence muscular disease. Has seen central office supervisor in the past though have not been able to get formal diagnosis for her elevated CPK levels. Of note does elevated SASCHA Her CPK level was able to decrease with increased fluids and vitamin-C / electrolytes which seems to helped decrease her CK levels. She will be trying to establish care with the milk hauler /central office supervisor in near future. She feels comfortable with her CPK levels being around 500. Of note renal functions have been stable. .. Hypertriglyceridemia: Most recent labs have noted elevated triglycerides and total cholesterol. Has been on fibrates in the past though due to his CK levels these have been discontinued. She will like to try vitamin B3( niacin) and continue working on lifestyle modifications .. Hypertension: Blood pressure today in office acceptable. Will continue amlodipine and hydrochlorothiazide. Laboratory Tests 02/22/22 08/08/22 09/18/22 09:34 07:20 10:05 Total Creatine Kin ase 575 H 812 H 508 H Triglycerides Cholesterol 01/11/23 03/04/23 05/01/23 10:20 17:06 08:56 Total Creatine Kin ase 504 H 496 H 726 H Triglycerides Cholesterol 05/01/23 08:56 Total Creatine Kin ase Triglycerides 470 H Cholesterol 281 H PFSH Surgical History History of surgical biopsy (09/04/22) History of dacryocystorhinostomy History of parathyroid surgery History of hand surgery Family History Mother Mental health disorder Father Mesothelioma Social History Housing: House Alcohol intake: current Alcohol intake frequency: a few times a month Alcohol type: hard liquor Patient Tobacco Use Status: Never used Tobacco e-Cigarette/Vaping Use: Never Used Second Hand Smoke Exposure: No service: No Current occupational status: employed 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 1. Little interest or pleasure in doing things: not at all 2. Feeling down, depressed, or hopeless: not at all 3. Trouble falling or staying asleep, or sleeping too much: not at all 4. Feeling tired or having little energy: not at all 5. Poor appetite or overeating: not at all 6. Feeling bad about yourself - or that you are a failure or have let yourself or your family down: not at all 7. Trouble concentrating on things, such as reading the newspaper or watching television: not at all 8. Moving or speaking so slowly that other people could have noticed. Or the opposite - being so fidgety or restless that you have been moving around a lot more than usual: not at all 9. Thoughts that you would be better off or of hurting yourself in some way: not at all Total score: 0 Depression Screening Interpretation: Negative Depression Screening Done: Yes 69769 - PHQ-9 Billing: Yes Source: Developed by Drs. Rayray Varghese, Norah Alfonso, Marty Echavarria and colleagues, with an educational eloina from [employer]. Thrive Questionnaire Date Thrive assessed: 05/22/23 I am a: Patient What is your living situation today?: I have a steady place to live Within the past 12 months, did the food you bought not last and you didn't have the money to get more?: Never true Within the past 12 months, did you worry whether your food would run out before you got money to buy more?: Never true Do you have trouble paying for medicines?: No Do you have trouble getting transportation to medical appointments?: No Do you have trouble paying your heating and electricity bill?: No Do you have trouble taking care of your child, family member or friend?: No Do you have trouble with day-to-day activities such as bathing, preparing meals, shopping, managing finances, etc.?: No Are you currently unemployed and looking for a job?: No Are you interested in more education?: No Please select the resources that you would like help with: None Currently or been in a relationship where the following occur: no concerns reported THRIVE Score: 0 AUDIT C Alcohol Use Questionnaire (AUDIT-C) 1. How often do you have a drink containing alcohol?: Monthly or less 2. How many drinks containing alcohol do you have on a typical day when you are drinking?: 1 or 2 3. How often do you have six or more drinks on one occasion?: Never Total Score: 1 MI-7 AMB Questionnaire MI-7 Date MI - 7 assessed: 05/22/23 Feeling nervous, anxious, or on edge: 0 = Not at all Not being able to stop or control worryin = Not at all Worrying too much about different things: 0 = Not at all Trouble relaxin = Not at all Being so restless that it is hard to sit still: 0 = Not at all Becoming easily annoyed or irritable: 0 = Not at all Feeling afraid as if something awful might happen: 0 = Not at all Total MI-7 score (0-4 normal; 5-9 mild; 10-14 moderate; 15-21 severe): 0 Source: Developed by Drs. Rayray Varghese, Norah Alfonso, Marty Echavarria and colleagues, with an educational eloina from [employer]. MI-7 Assessment Billing MI-7 Assessment Tool: MI-7 Assessment 71020 Review of Systems Const Denies headache(s) Eyes Denies loss of vision ENT Denies vertigo, Denies dizziness, Denies headache(s) and Denies sore throat Card Denies chest pain, Denies leg edema and Denies lightheadedness Resp Denies cough, Denies hemoptysis and Denies wheezing GI Denies abdominal pain, Denies melena, Denies constipation, Denies diarrhea and Denies vomiting Denies urinary frequency, Denies dysuria and Denies urinary urgency Musc Denies arthralgias, Denies joint swelling, Denies numbness and Denies tingling Neuro Denies Abnormal speech present, Denies behavioral changes, Denies vertigo, Denies dizziness, Denies headache(s), Denies loss of vision, Denies memory loss, Denies numbness and Denies tingling Psych Denies anxiety, Denies behavioral changes, Denies depression, Denies memory loss and Denies panic attacks George/Lymph Denies easy bleeding and Denies easy bruising Aller/Immun Denies wheezing Physical exam (Primary Care) Vital Signs: Last Vital Signs Pulse 78 05/22/23 08:10 BP 126/80 05/22/23 08:10 Pulse Ox 95 05/22/23 08:10 Oxygen Delivery Method Room Air 05/22/23 08:10 BMI result Body Mass Index 32.6 Tobacco/Smoking Status: Tobacco use Status Tobacco use date assessed 05/22/23 05/22/23 08:15 Patient Tobacco Use Status Never used Tobacco 05/22/23 08:15 e-Cigarette/Vaping Use Never Used 05/22/23 08:15 PHQ-9: PHQ-9 Score PHQ-9: Total score 0 05/22/23 08:21 Depression Screening Interpretation: Negative Thrive Assessment: Date of Thrive Assessment Date Thrive assessed 05/22/23 05/22/23 08:15 Currently or been in a relationship where the following occur: no concerns reported Const General: healthy appearing, no acute distress, alert and awake Nutritional Appearance: well nourished Orientation/consciousness: oriented to person, oriented to place and oriented to time [facility] Head images: 1. SMALL RAISED ROUGH TEXTURED KERATOTIC LESION OVER TOP OF SCALP. Ears: TM's normal bilaterally General nose exam: Normal nasal mucous membranes and turbinates present Eyes Conjunctivae: conjunctivae normal Sclerae: sclerae normal Pupils: Equal, round and reactive pupils present Neck Neck: Yes no lymphadenopathy and Yes no JVD Thyroid: Thyroid normal Carotids: no bruits Resp Effort & Inspection: normal respiratory effort and not tachypneic Auscultation: no crackles, no rales, no rhonchi and no wheezes Cardio Rate: regular rate Rhythm: regular rhythm Heart sounds: no murmurs and normal S1 and S2 GI Palpation (GI): Soft to palpation, nontender, no hepatomegaly and no splenomegaly Auscultation: normal bowel sounds Skin General skin exam: no rashes or lesions noted and dry skin Neuro General: oriented to person, oriented to place and oriented to time Cranial nerves: Yes Equal, round and reactive pupils present Speech: No Abnormal speech present Gait exam (Neuro): Normal gait present Motor exam (neuro): no tremor noted Extrem Right upper extremity: full ROM Left upper extremity: full ROM Right lower extremity: full ROM; no edema Left lower extremity: full ROM; no edema Psych Mental Status: mental status grossly normal Speech and movement: Normal speech and movement present Affect: normal affect Attitude: cooperative Thought process: Normal thought process present Assessment and Plan Assessment & Plan (1) Elevated CK: Code(s): R74.8 - Abnormal levels of other serum enzymes Plan: Unclear diagnosis for patient's elevated CPK levels. Unclear if related to her physical activity. Has gotten muscle biopsy without any evidence of muscle disease. Patient's renal function stable and ESR without any elevation. At this point no clear diagnosis. Could be idiopathic hyper CK-emia Due to patient's fear renal failure and reassurance will continue to monitor CPK levels on a monthly basis.. She will be trying to establish care with milk hauler in near future. (2) Mixed hyperlipidemia: Code(s): E78.2 - Mixed hyperlipidemia Plan: Noted most recent lipid panel showing elevated total cholesterol and very elevated triglycerides. Has stopped cholesterol medication due to elevations her CPK. . (3) Obese: Code(s): E66.9 - Obesity, unspecified Qualifiers: Body mass index: BMI 32.0-32.9 Obesity classification: adult class 1 (BMI 30 - 34.9) Obesity type: due to excess calories Serious obesity comorbidity presence: without serious comorbidity Qualified Code(s): E66.09 - Other obesity due to excess calories; Z68.32 - Body mass index [BMI] 32.0-32.9, adult Plan: She does understand BMI is over 30 will work on continuing to be physically active and adapting to some better eating habits to reduce her weight. (4) Skin lesion of scalp: Code(s): L98.9 - Disorder of the skin and subcutaneous tissue, unspecified Plan: Has noted a raised rough texture scalp lesion over last several weeks. She would like to see a tennis desk team member for removal/biopsy. Orders: Orders Microalbumin, Random (w Creat) Today I10 - Essential (primary) hypertension Lipid Panel 7 Months E78.2 - Mixed hyperlipidemia Referrals Dermatology Referral L98.9 - Disorder of the skin and subcutaneous tissue, unspecified Coding Level of Care Code Est Pt Level 4 (50996) Diagnoses Elevated CK R74.8 Mixed hyperlipidemia E78.2 Class 1 obesity due to excess calories without serious comorbidity with body mass index (BMI) of 32.0 to 32.9 in adult E66.09; Z68.32 Body mass index: BMI 32.0-32.9 Obesity classification: adult class 1 (BMI 30 - 34.9) Obesity type: due to excess calories Serious obesity comorbidity presence: without serious comorbidity Skin lesion of scalp L98.9 Additional Codes MI-7 Assessment Billing - MI-7 Assessment Tool: MI-7 Assessment 47471 ([id number])
[2023-05-22 08:10] VITALS: BP 126/80; PULSE 78; O2SAT 95; BMI 32.6
== END 2023-05-22 08:41 | disposition home or self-care (01) ==
PROVIDERS: PCP Physician Assistant; Visit Provider Physician Assistant
DX: R74.8 Abnormal levels of other serum enzymes (principal); E78.2 Mixed hyperlipidemia; E66.09 Other obesity due to excess calories; Z68.32 Body mass index [BMI] 32.0-32.9, adult; L98.9 Disorder of the skin and subcutaneous tissue, unspecified
CPT/HCPCS: 99214

== ENCOUNTER 2023-08-02 08:51 | Outpatient (REF) | payer MEDICARE, SELFPAY ==
[2023-08-02 10:20] LABS: Creatinine Urine 26.16 mg/dL; Microalbumin Urine < 5.0 mg/L
== END 2023-08-02 08:52 | disposition home or self-care (01) ==
LOC: HO.LAB 08:51
PROVIDERS: PCP Physician Assistant; Visit Provider Physician Assistant
DX: R74.8 Abnormal levels of other serum enzymes (principal); I10 Essential (primary) hypertension
CPT/HCPCS: 36415; 82043; 82550; 82570

== ENCOUNTER 2023-08-23 07:43 | Outpatient (REF) | payer MEDICARE, SELFPAY ==
[2023-08-23 08:40] LABS: Anion Gap 12 (12-20); Blood Urea Nitrogen 26 mg/dL (9-16); Calcium 10.2 mg/dL (8.4-10.2); Carbon Dioxide 29 mmol/L (22-29); Chloride 104 mmol/L (96-108); Estimated Glomerular Filt Rate > 60; Glucose Random 99 mg/dL (60-115); Potassium 3.9 mmol/L (3.3-5.1); Sodium 141 mmol/L (135-145)
[2023-08-23 08:53] LABS: Insulin 20 uU/mL (2-29)
== END 2023-08-23 07:44 | disposition home or self-care (01) ==
LOC: HO.LAB 07:43
PROVIDERS: PCP Physician Assistant; Visit Provider Physician Assistant
DX: E66.09 Other obesity due to excess calories (principal); R74.8 Abnormal levels of other serum enzymes; Z68.32 Body mass index [BMI] 32.0-32.9, adult
CPT/HCPCS: 36415; 80048; 83525

== ENCOUNTER 2023-11-01 09:42 | Outpatient (REF) | payer MEDICARE, SELFPAY ==
[2023-11-01 11:10] LABS: Anion Gap 11 (12-20); Blood Urea Nitrogen 24 mg/dL (9-16); Calcium 9.9 mg/dL (8.4-10.2); Carbon Dioxide 31 mmol/L (22-29); Chloride 104 mmol/L (96-108); Estimated Glomerular Filt Rate > 60; Glucose Random 88 mg/dL (60-115); Potassium 4.1 mmol/L (3.3-5.1); Sodium 142 mmol/L (135-145)
== END 2023-11-01 09:43 | disposition home or self-care (01) ==
LOC: HO.LAB 09:42
PROVIDERS: PCP Physician Assistant; Visit Provider Physician Assistant
DX: R74.8 Abnormal levels of other serum enzymes (principal)
CPT/HCPCS: 36415; 80048; 82550

== ENCOUNTER → 2023-12-12 07:26 | Outpatient (REF) | payer MEDICARE, SELFPAY ==
--- NOTE | 2023-12-12 07:32 | ECG_ITS ---
Test Reason : pre op Blood Pressure : / mmHG Vent. Rate : 069 BPM Atrial Rate : 069 BPM P-R Int : 178 ms QRS Dur : 086 ms QT Int : 432 ms P-R-T Axes : 019 -09 017 degrees QTc Int : 462 ms Normal sinus rhythm Moderate voltage criteria for LVH, may be normal variant ( R in aVL , [place] product ) Borderline ECG No previous ECGs available Referred By: Herb Flores Electronically Signed By:МАРИЯ SHAFER
== END ==
LOC: HO.CARD 07:26
PROVIDERS: PCP Physician Assistant; Visit Provider Physician Assistant
DX: Z01.818 Encounter for other preprocedural examination (principal); R74.8 Abnormal levels of other serum enzymes
CPT/HCPCS: 36415; 82550; 93005

== ENCOUNTER 2024-01-13 08:57 | Outpatient (AMB) | payer MEDICARE, SELFPAY ==
[2024-01-13 09:06] VITALS: BP 144/80; PULSE 80; O2SAT 96; BMI 31.0
--- NOTE | 2024-01-13 09:06 | A.OFFPC_ITS ---
Vital Signs 3 01/13/24 09:06 Height 5 ft 6 in Weight 192 lb BMI 31.0 BP 144/80 H Blood Pressure Location Rt brachial Position Sitting Pulse 80 Pulse Source Pulse Oximeter Pulse Oximetry (%) 96 Oxygen Delivery Method Room Air Intake Visit Reasons: VNA services Evaluation. 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 2 HPI0 Details Patient is a 68-year-old female here today for a follow-up visit. Patient has a past medical history significant for hypertension, chronically elevated CK levels, mixed hyperlipidemia.. She needs evaluation for VNA services. 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 She had to go undergo a skin graft transplant on her face that was taken from her back. Unfortunately as a result of surgery she had some left upper extremity weakness and needed occupational therapy at home after her surgery. Also did not need VNA services to do wound management on her skin donor site on her back. 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 1. Little interest or pleasure in doing things: not at all 2. Feeling down, depressed, or hopeless: not at all 3. Trouble falling or staying asleep, or sleeping too much: not at all 4. Feeling tired or having little energy: not at all 5. Poor appetite or overeating: not at all 6. Feeling bad about yourself - or that you are a failure or have let yourself or your family down: not at all 7. Trouble concentrating on things, such as reading the newspaper or watching television: not at all 8. Moving or speaking so slowly that other people could have noticed. Or the opposite - being so fidgety or restless that you have been moving around a lot more than usual: not at all 9. Thoughts that you would be better off or of hurting yourself in some way: not at all Total score: 0 Depression Screening Interpretation: Negative Depression Screening Done: Yes 06249 - PHQ-9 Billing: Yes Source: Developed by Drs. Rayray Varghese, Norah Alfonso, Marty Echavarria and colleagues, with an educational eloina from [employer]. Thrive Questionnaire Date Thrive assessed: 05/22/23 AUDIT C Alcohol Use Questionnaire (AUDIT-C) 1. How often do you have a drink containing alcohol?: Monthly or less 2. How many drinks containing alcohol do you have on a typical day when you are drinking?: 1 or 2 3. How often do you have six or more drinks on one occasion?: Never Total Score: 1 MI-7 AMB Questionnaire MI-7 Date MI - 7 assessed: 05/22/23 Source: Developed by Drs. Rayray Varghese, Norah Alfonso, Marty Echavarria and colleagues, with an educational eloina from [employer]. Review of Systems Const Denies headache(s) Eyes Denies loss of vision ENT Denies vertigo, Denies dizziness, Denies headache(s) and Denies sore throat Card Denies chest pain, Denies leg edema and Denies lightheadedness Resp Denies cough, Denies hemoptysis and Denies wheezing GI Denies abdominal pain, Denies melena, Denies constipation, Denies diarrhea and Denies vomiting Denies urinary frequency, Denies dysuria and Denies urinary urgency Musc Denies arthralgias, Denies joint swelling, Denies numbness and Denies tingling Neuro Denies Abnormal speech present, Denies behavioral changes, Denies vertigo, Denies dizziness, Denies headache(s), Denies loss of vision, Denies memory loss, Denies numbness and Denies tingling Psych Denies anxiety, Denies behavioral changes, Denies depression, Denies memory loss and Denies panic attacks George/Lymph Denies easy bleeding and Denies easy bruising Aller/Immun Denies wheezing Physical exam (Primary Care) Vital Signs: Last Vital Signs Pulse 80 01/13/24 09:06 BP 144/80 H 01/13/24 09:06 Pulse Ox 96 01/13/24 09:06 Oxygen Delivery Method Room Air 01/13/24 09:06 BMI result Body Mass Index 31.0 Tobacco/Smoking Status: Tobacco use Status Tobacco use date assessed 05/22/23 01/13/24 09:12 Patient Tobacco Use Status Never used Tobacco 01/13/24 09:12 Tobacco use type Cigarette 01/13/24 09:12 e-Cigarette/Vaping Use Never Used 01/13/24 09:12 PHQ-9: PHQ-9 Score PHQ-9: Total score 0 01/13/24 09:12 Depression Screening Interpretation: Negative Thrive Assessment: Date of Thrive Assessment Date Thrive assessed 05/22/23 01/13/24 09:12 Const General: healthy appearing, no acute distress, alert and awake Nutritional Appearance: well nourished Orientation/consciousness: oriented to person, oriented to place and oriented to time [facility] Ears: TM's normal bilaterally General nose exam: Normal nasal mucous membranes and turbinates present Eyes Conjunctivae: conjunctivae normal Sclerae: sclerae normal Pupils: Equal, round and reactive pupils present Neck Neck: Yes no lymphadenopathy and Yes no JVD Thyroid: Thyroid normal Carotids: no bruits Resp Effort & Inspection: normal respiratory effort and not tachypneic Auscultation: no crackles, no rales, no rhonchi and no wheezes Cardio Rate: regular rate Rhythm: regular rhythm Heart sounds: no murmurs and normal S1 and S2 GI Palpation (GI): Soft to palpation, nontender, no hepatomegaly and no splenomegaly Auscultation: normal bowel sounds Back/Spine/Pelvis Back/spine/pelvis image: 2 1. SKIN GRAFT DONOR SITE NOTED Skin General skin exam: no rashes or lesions noted and dry skin Neuro General: oriented to person, oriented to place and oriented to time Cranial nerves: Yes Equal, round and reactive pupils present Speech: No Abnormal speech present Gait exam (Neuro): Normal gait present Motor exam (neuro): no tremor noted Extrem Other: LEFT UPPER EXTREMITY: ONLY ABLE TO LIFT ABOVE HEAD USING PASSIVE RANGE OF MOTION Right upper extremity: full ROM Left upper extremity: ROM limited Right lower extremity: full ROM; no edema Left lower extremity: full ROM; no edema Psych Mental Status: mental status grossly normal Speech and movement: Normal speech and movement present Affect: normal affect Attitude: cooperative Thought process: Normal thought process present Coding Level of Care Code Est Pt Level 4 (47295) Diagnoses 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 She did well after surgery though does do her own care on her face though does have a skin graft over upper left scapular region that she can not do wound care on. She needs home visiting nurses to change bandages every other day. She will be following up with surgeon in [place] later this week has a postop. (2) Disorder of donor site of skin graft: Code(s): T86.829 - Unspecified complication of skin graft (allograft) (autograft) Category: Medical Plan: As above does need home visiting skilled nurses to do wound care on her skin donor site over left upper back. Today we did change bandage. Will try to set patient up with VNA services (3) Left arm weakness: Code(s): R29.898 - Other symptoms and signs involving the musculoskeletal system Category: Medical Plan: Has left upper extremity weakness status post surgery. Did have bone and skin grafts taken from left scapular region. Does not need need OT to help with activities of daily living and compensatory strategies. Orders: Referrals 2 Visiting Nurse Association/Hospice Referral D49.89 - Neoplasm of unspecified behavior of other specified sites, R29.898 - Other symptoms and signs involving the musculoskeletal system, T86.829 - Unspecified complication of skin graft (allograft) (autograft) Medications: New 2 niacin 100 mg PO DAILY 90 days 90 tabs 1RF E78.2 - Mixed hyperlipidemia
== END 2024-01-13 10:45 | disposition home or self-care (01) ==
PROVIDERS: PCP Physician Assistant; Visit Provider Physician Assistant
DX: D49.89 Neoplasm of unspecified behavior of other specified sites (principal); T86.829 Unspecified complication of skin graft (allograft) (autograft); R29.898 Other symptoms and signs involving the musculoskeletal system

== ENCOUNTER → 2024-01-13 08:57 | Outpatient (BNVA) | payer MEDICARE, SELFPAY | PROVIDERS: PCP Physician Assistant; Visit Provider Physician Assistant | DX: D49.89 Neoplasm of unspecified behavior of other specified sites (principal); T86.829 Unspecified complication of skin graft (allograft) (autograft); R29.898 Other symptoms and signs involving the musculoskeletal system | CPT/HCPCS: 96127; 99212 ==

== ENCOUNTER 2024-03-17 14:19 | Outpatient (AMB) | payer MEDICARE, SELFPAY ==
[2024-03-17 14:21] VITALS: BP 124/72; PULSE 97; O2SAT 97; BMI 30.2
--- NOTE | 2024-03-17 14:21 | A.OFFPC_ITS ---
Vital Signs 03/17/24 14:21 Height 5 ft 6 in Weight 187 lb 6.287 oz BMI 30.2 BP 124/72 Blood Pressure Location Lt brachial Position Sitting Pulse 97 Pulse Source Pulse Oximeter Pulse Oximetry (%) 97 Oxygen Delivery Method Room Air Intake Visit Reasons: Annual Exam Test Carrier Required: No Accompanied by: Self / Same As Patient Allergies solifenacin [From Vesicare] Adverse Reaction (Intermediate, Verified 03/17/24 14:28) Blurry Vision Medication List - Last Reconciled 03/17/24 by Herb Flores PA-C amlodipine 2.5 mg PO DAILY 90 days amlodipine 5 mg PO DAILY 90 days hydrochlorothiazide 25 mg PO DAILY 90 days niacin 100 mg PO DAILY 90 days Tobacco use date assessed: 05/22/23 Fall risk assessment: No Falls in past year Last assessed Fall Risk: 03/17/24 Dental Screening Dental Screen Date: 05/22/23 [facility] Annual Exam HPI Details Patient is a 68-year-old female here today for routine annual physical. Patient has a past medical history significant for hypertension, chronically elevated CK levels, lacrimal gland tumor, mixed hyperlipidemia.. 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 Is being treated in [place] with radiation. Unfortunately as a result of surgery she had some left upper extremity weakness/ decreased range of motion and needs occupational therapy to help her with strength, range of motion. Hypertriglyceridemia: Most recent labs have noted elevated triglycerides and total cholesterol. Has been on fibrates in the past though due to his CK levels these have been discontinued. She will like to try vitamin B3( niacin) and continue working on lifestyle modifications .. Hypertension: Blood pressure today in office acceptable. We have increased her amlodipine dose to 7.5 mg daily blood pressure seems to have normalized. Vaccines: Up-to-date with flu vaccine, COVID vaccine, RSV and shingles vaccine, tetanus vaccine Colon cancer screening: done in 2021- normal repeat 10 years Mammogram: Gets them done [facility] annually up-to-date mammogram GRIP BOSS: Does see a GRIP BOSS [facility] Surgical History History of surgical biopsy (09/04/22) History of dacryocystorhinostomy History of parathyroid surgery History of hand surgery Family History Mother Mental health disorder Father Mesothelioma Social History (Updated 03/17/24 @ 14:32 by Herb Flores PA-C) Housing: House Alcohol intake: current Alcohol intake frequency: a few times a month Alcohol type: hard liquor Patient Tobacco Use Status: Never used Tobacco Tobacco use type: Cigarette e-Cigarette/Vaping Use: Never Used Second Hand Smoke Exposure: No service: No Current occupational status: employed 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 1. Little interest or pleasure in doing things: not at all 2. Feeling down, depressed, or hopeless: not at all 3. Trouble falling or staying asleep, or sleeping too much: more than half the days 4. Feeling tired or having little energy: nearly every day 5. Poor appetite or overeating: nearly every day 6. Feeling bad about yourself - or that you are a failure or have let yourself or your family down: more than half the days 7. Trouble concentrating on things, such as reading the newspaper or watching television: several days 8. Moving or speaking so slowly that other people could have noticed. Or the opposite - being so fidgety or restless that you have been moving around a lot more than usual: several days Source: Developed by Drs. Rayray Varghese, Norah Alfonso, Marty Echavarria and colleagues, with an educational eloina from [employer]. Thrive Questionnaire Date Thrive assessed: 05/22/23 I am a: Patient What is your living situation today?: I have a steady place to live Within the past 12 months, did the food you bought not last and you didn't have the money to get more?: Never true Within the past 12 months, did you worry whether your food would run out before you got money to buy more?: Never true Do you have trouble paying for medicines?: Yes Do you have trouble getting transportation to medical appointments?: Yes Do you have trouble paying your heating and electricity bill?: Yes Do you have trouble taking care of your child, family member or friend?: No Do you have trouble with day-to-day activities such as bathing, preparing meals, shopping, managing finances, etc.?: Yes Are you currently unemployed and looking for a job?: Yes Are you interested in more education?: No Please select the resources that you would like help with: None Currently or been in a relationship where the following occur: No concerns reported and I choose not to answer THRIVE Score: 2 AUDIT C Alcohol Use Questionnaire (AUDIT-C) 1. How often do you have a drink containing alcohol?: Never Total Score: 0 MI-7 AMB Questionnaire MI-7 Date MI - 7 assessed: 05/22/23 Feeling nervous, anxious, or on edge: 3 = Nearly every day Not being able to stop or control worryin = Nearly every day Worrying too much about different things: 3 = Nearly every day Trouble relaxin = Nearly every day Being so restless that it is hard to sit still: 3 = Nearly every day Becoming easily annoyed or irritable: 3 = Nearly every day Feeling afraid as if something awful might happen: 3 = Nearly every day Total MI-7 score (0-4 normal; 5-9 mild; 10-14 moderate; 15-21 severe): 21 Source: Developed by Drs. Rayray Varghese, Norah Alfonso, Marty Echavarria and colleagues, with an educational eloina from [employer]. Review of Systems Const Denies body aches, Denies chills, Denies excessive sweating, Denies fatigue, Denies fever(s) and Denies headache(s) Eyes Denies blurry vision ENT Denies dysphagia, Denies vertigo, Denies dizziness, Denies headache(s), Denies hearing loss and Denies tinnitus Card Denies chest pain, Denies chest pain with activity, Denies syncope, Denies irregular heart rhythm and Denies dyspnea Resp Denies chest congestion, Denies cough, Denies hemoptysis, Denies dyspnea and Denies wheezing GI Denies abdominal pain, Denies melena, Denies hematochezia, Denies coffee ground emesis, Denies dysphagia, Denies diarrhea, Denies nausea and Denies vomiting Denies urinary frequency, Denies dysuria, Denies urinary hesitancy and Denies urinary urgency Musc Denies arthralgias, Denies limited range of motion, Denies muscle cramps and Denies muscle weakness Skin/Breast Denies rash and Denies skin ulcer Neuro Denies Abnormal speech present, Denies confusion, Denies vertigo, Denies dizziness, Denies syncope, Denies headache(s), Denies memory loss and Denies seizure-like activity Psych Denies anxiety, Denies confusion, Denies depression, Denies memory loss, Denies panic attacks and Denies paranoia Endo Denies excessive sweating, Denies fatigue, Denies flushing, Denies polydipsia and Denies polyuria Aller/Immun Denies wheezing Physical exam (Primary Care) Vital Signs: Last Vital Signs Pulse 97 03/17/24 14:21 BP 124/72 03/17/24 14:21 Pulse Ox 97 03/17/24 14:21 Oxygen Delivery Method Room Air 03/17/24 14:21 BMI result Body Mass Index 30.2 Tobacco/Smoking Status: Tobacco use Status Tobacco use date assessed 05/22/23 03/17/24 14:24 Patient Tobacco Use Status Never used Tobacco 03/17/24 14:32 Tobacco use type Cigarette 03/17/24 14:32 e-Cigarette/Vaping Use Never Used 03/17/24 14:32 Thrive Assessment: Date of Thrive Assessment Date Thrive assessed 05/22/23 03/17/24 14:24 Currently or been in a relationship where the following occur: No concerns reported and I choose not to answer Const General: cooperative, comfortable, no acute distress, alert and awake; No confusion Orientation/consciousness: oriented to person, oriented to place, patient oriented x3 and No confusion HENMT Head: Yes normocephalic Ears: external ears normal and TM's normal bilaterally Face and sinus: No sinus tenderness Mouth: Normal oral and palatal mucosa present and tongue normal Teeth and gingiva: dentition normal and gingiva normal Throat: Yes posterior oropharynx normal, Yes tonsils normal and Yes uvula midline Eyes Conjunctivae: conjunctivae normal Sclerae: sclerae normal Pupils: Equal, round and reactive pupils present EOM: EOMs intact bilaterally Direct Ophthalmoscopy: No no photophobia Neck Neck: Yes no lymphadenopathy, No tender and Yes no JVD Thyroid: Thyroid normal Carotids: no bruits Chest Chest palpation & inspection: no tenderness Resp Effort & Inspection: normal respiratory effort, no audible wheezes, not labored and no stridor Auscultation: no crackles, no rales, no rhonchi and no wheezes Cardio Jugular venous distension: no JVD Rate: regular rate, not bradycardic and not tachycardic Rhythm: regular rhythm Bruits: no carotid bruits Peripheral pulses: Peripheral pulses 2+ throughout GI Inspection: Yes normal to inspection, No abdominal wall ecchymosis and No visible herniation Palpation (GI): Soft to palpation, nontender, no guarding, not rigid and No hepatosplenomegaly present Auscultation: normoactive bowel sounds General: Yes no CVA tenderness Back/Spine/Pelvis Back: no CVA tenderness and No back tenderness Cervical Spine: cervical ROM normal Thoracic/Lumbar Spine: thoracic and lumbar spine normal to inspection, straight leg raise negative bilaterally, No thoraco-lumbar ROM limited and No lumbar spinal tenderness Skin Lesions: no lesions Rashes: no rashes Wounds: no wounds Neuro General: oriented to person, oriented to place, patient oriented x3, CN's II-XI intact bilaterally and No confusion Cranial nerves: Yes Equal, round and reactive pupils present and Yes Normal accommodation reflex present Cognition (Neuro): normal cognition Speech: No Abnormal speech present Gait exam (Neuro): Normal gait present Motor exam (neuro): 5/5 motor strength present throughout Extrem Other: LEFT UPPER EXTREMITY/ SHOULDER: INABILITY TO LIFT ARM ABOVE HEAD, HAS VERY LIMITED RANGE OF MOTION AND 3/5 STRENGTH COMPARED TO 5/5 STRENGTH ON RIGHT UPPER EXTREMITY. Right upper extremity: full ROM; no cyanosis Left upper extremity: full ROM; no cyanosis Right lower extremity: no edema Left lower extremity: no edema Psych Appearance: grossly normal Mental Status: mental status grossly normal Affect: normal affect Attitude: cooperative Thought process: Normal thought process present Coding Level of Care Code Est Pt Prev Care >65y(04820) Diagnoses Annual physical exam Z00.00 Lacrimal gland tumor D49.89 Essential hypertension I10 Mixed hyperlipidemia E78.2 Left arm weakness R29.898 Assessment & Plan Assessment & Plan (1) Annual physical exam: Code(s): Z00.00 - Encounter for general adult medical examination without abnormal findings Category: Medical Plan: as per HPI (2) Lacrimal gland tumor: Code(s): D49.89 - Neoplasm of unspecified behavior of other specified sites Category: Medical Plan: Patient continues to go to [place] for her lacrimal gland tumor treatment. She is undergoing radiation. She has only limited vision in her left eye due to continued swelling and inability to wear glasses and contacts in her left eye. * SHE WOULD LIKE ALL COMMUNICATION TO BE VIA VOICE TELEPHONE SHE STATES SHE IS NOT ABLE TO READ EMAILS WELL. (3) Essential hypertension: Code(s): I10 - Essential (primary) hypertension Category: Medical Plan: Patient's blood pressure acceptable today in office. She continues on amlodipine 7.5 mg and hydrochlorothiazide 25 mg. 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 She is requesting home OT as she is not able to travel easily outside of her home due to her lack of vision. Orders: Orders Comprehensive [place]. Panel Fast 03/17/24 E78.2 - Mixed hyperlipidemia Microalbumin, Random (w Creat) 03/17/24 I10 - Essential (primary) hypertension Lipid Panel 03/17/24 E78.2 - Mixed hyperlipidemia Complete Blood Count no Diff 03/17/24 E78.2 - Mixed hyperlipidemia Medications: Refilled hydrochlorothiazide 25 mg PO DAILY 90 tabs 1RF 90 days I10 - Essential (primary) hypertension amlodipine 5 mg PO DAILY 90 tabs 1RF 90 days I10 - Essential (primary) hypertension amlodipine 2.5 mg PO DAILY 90 tabs 1RF 90 days I10 - Essential (primary) hypertension
--- OUTSIDE RECORDS SUMMARY | 2024-03-17 14:21 | XMS_ITS | Continuity of Care Document ---
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 Role Phone Brock Post MD Unavailable Unavailable Medications Medication Instructions Dosage Effective Dates (start - stop) Status Comments Maxitrol 3.5 mg/mL-10,000 unit/mL-0.1% eye drops,suspension instill 1 drop by ophthalmic route twice a day in the left eye for 2 weeks - Active Procedures Procedure Date EYE EXAM & TREATMENT POSTOP FOLLOW-UP VISIT POSTOP FOLLOW-UP VISIT Level IV - Surg Path, Gross & Micro No M argins FROZEN SECTION SINGLE REMOVE EYELID LESION OFFICE/OUTPATIENT VISIT, [facility] Advance Directives Directive Yes / No Effective Date File Name No Information Encounters Encounter Description Practice Location Reason(s) For Visit Diagnoses Date Provider Providers Copied on Encounter [facility], [address] [place] [address], [id number], [place] tel:[phone] CPEC Service Floaters (chief complaint) Malignant neoplasm of left orbitPVD OUVitreous floaters Bilateral Eyes 4 Sincere Gutiérrez. [address] [place] [address], [address], [place], [id number], [place]. tel:[phone] [facility], [address] [place] [address], [id number], [place] tel:[phone] Oculoplastic Resident Service Malignant neoplasm of left orbit 4 [facility]. [address] [place] [address], Any Location, [place], [address], [place]. tel:[phone] [facility], [address] [place] [address], [id number], [place] tel:[phone] Oculoplastic Resident Service post op (chief complaint) Epiphora, left sideMalignant neoplasm of left orbit 4 Lacho Pradhan. [address] [place] [address], [address], [place], [place], [id number], [place]. tel:[phone] [facility], [address] [place] [address], [id number], [place] tel:[phone] Pathology No Information 4 Shannan Hernandez. [address] [place] [address], [address], [place], [address]. tel:[phone] Referring Provider: Carolynn Lares, [address] [place] [address] [address], [place], [address] . tel:[phone] [facility], [address] [place] [address], [id number], [place] tel:[phone] Oculoplastic Resident Service routine exam (chief complaint) Benign eyelid neoplasm 4 Lacho Pradhan. [address] [place] [address], [address], [place], [place], [id number], [place]. tel:[phone] OFFICE/OUTPA TIENT VISIT, NEW [facility], [address] [place] [address], [id number], [place] tel:[phone] Oculoplastic Resident Service DCR Eval (chief complaint) Epiphora, left side 4 Lacho Pradhan. [address] [place] [address], [address], [place], [place], [id number], [place]. tel:[phone] Family History Family Member Type Diagnosis Age At Onset Mother Problem (finding) glacoma Father Problem (finding) cancer Mother Problem (finding) macular degeneration Payers Payer name Insurance type Covered libertarian ID jC ibrahim(s) [facility] [employer] [id number] Social History Type Description Quantity Date Captured Comments Alcohol Use Details Unknown Caffeine Use Details Unknown Tobacco Use Status No Information Smoking Status No Information Sex Female Chief Complaint And Reason For Visit From encounter dated '02/18/2024 10:45'. Floaters (chief complaint). Description: The 68 year old patient presents for evaluation of floaters OU since grocery box -> head last . Pt reports new floaters OU that is worse in the morning & night. Pt reports floaters appear like black specks. Denies any flashes or curtain over vision. PT reports of swelling in OS. Current drops: Refresh drops and gel TID in OD and Polyvinyl TID in OS. Reason For Referral Reason For Referral No Information Plan Of Treatment Date Type Action Status Appointment Lexie Mayorga BOOKED History Of Present Illness Encounter Date Complaint History Of Prese nt Illness Floaters The 68 year old patient presents for evaluation of floaters OU since grocery box -> head last . Pt reports new floaters OU that is worse in the morning & night. Pt reports floaters appear like black specks. Denies any flashes or curtain over vision. PT reports of swelling in OS. Current drops: Refresh drops and gel TID in OD and Polyvinyl TID in OS. 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 Doing great, denies pain or diplopia. In great spirits. routine exam 68F here for bio psy of L lacrimal sac mass. DCR Eval The 68 year old patient presents for evaluation of DCR Eval in the left eye. 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
== END 2024-03-17 14:45 | disposition home or self-care (01) ==
PROVIDERS: PCP Physician Assistant; Visit Provider Physician Assistant
DX: Z00.00 Encounter for general adult medical examination without abnormal findings (principal); D49.89 Neoplasm of unspecified behavior of other specified sites; I10 Essential (primary) hypertension; E78.2 Mixed hyperlipidemia; R29.898 Other symptoms and signs involving the musculoskeletal system

== ENCOUNTER → 2024-03-17 14:19 | Outpatient (BNVA) | payer MEDICARE, SELFPAY | PROVIDERS: PCP Physician Assistant; Visit Provider Physician Assistant | DX: Z00.00 Encounter for general adult medical examination without abnormal findings (principal); E78.1 Pure hyperglyceridemia; I10 Essential (primary) hypertension; E78.2 Mixed hyperlipidemia; Z86.69 Personal history of other diseases of the nervous system and sense organs; R29.898 Other symptoms and signs involving the musculoskeletal system | CPT/HCPCS: 99397 ==

== ENCOUNTER 2024-07-20 09:31 | Outpatient (REF) | payer MEDICARE, SELFPAY ==
[2024-07-20 10:09] LABS: Hematocrit 41.2 % (37.0-47.0); Hemoglobin 13.9 g/dl (12.0-16.0); Mean Corpuscular HGB Conc 33.7 g/dl (31.0-35.0); Mean Corpuscular Hemoglobin 31.7 pg (27.0-33.0); Mean Corpuscular Volume 93.8 fL (80.0-98.0); Platelet Count 184 X10*3/uL (160-400); Red Blood Count 4.39 X10*6/uL (4.20-5.50); Red Cell Distribution Width 12.5 % (11.0-16.0); White Blood Count 5.5 X10*3/uL (4.8-10.8)
--- OUTSIDE RECORDS SUMMARY | 2024-07-20 10:35 | XMS_ITS | Referral Summary ---
Author Organization [facility] Address [address] [place] [address] Care Team Providers Care Enterprise Account Manager Name Role Phone Neda Tatum MD Primary Care Provider [phone] Allergies Active Allergy Reactions Criticality Noted Date Comments Solifenacin Other (see comments) 01/03/2022 Decreased bladder sensation. Blurry vision Medications amLODIPine (NORVASC) 5 mg tablet Take 5 mg by mouth once a day. 05/22/2021 Active hydroCHLOROthiaz jaimee (HYDRODIURIL) 25 mg tablet Take 25 mg by mouth once a day. 05/22/2021 Active ezetimibe (ZETIA) 10 mg tablet Take 10 mg by mouth once a day. 02/08/2022 Active calcium carbonate 500 mg calcium (1,250 mg) capsule Take 1,250 mg by mouth daily. Active cholecalciferol (VITAMIN D3) 1,000 unit tablet Take 1,000 Units by mouth daily. Active melatonin 3 mg tablet Take 3 mg by mouth daily. Active Active Problems Problem Noted Date Diagnosed Date Elevated CK 02/14/2022 Assessment & Plan (02/14/2022 2:59 PM EST): Ms. Mayorga developed mild elevation of her serum creatine kinase on pravastatin therapy. She stopped taking pravastatin and has experienced persistent elevation of her serum creatine kinase to the range of around 600 U/L, without muscle weakness. She experienced muscle tightness and loss of flexibility while on pravastatin, which have resolved off of pravastatin. She now takes ezetimibe to treat her hypercholesterolemia. Off of statin therapy and with no muscle weakness or other related symptoms, there is no need to continue checking her serum creatine kinase level. She need not limit her activity. I advised her to not overexercise right away, since she is somewhat deconditioned. However, she may return to her usual level of activity. She should remain off of statin therapy and is taking ezetimibe as an alternative cholesterol-lowering agent. She will return to her primary care provider for her general medical care. If she develops significant muscle weakness, she should return for reevaluation. Pain in thumb joint with movement of left hand 0 09/23/2014 Sensorineural hearing loss 08/23/2014 Hearing loss 07/27/2014 Cerumen impaction 07/27/2014 Left otitis media 06/11/2014 Upper respiratory infection 06/11/2014 Acrochordon 03/22/2014 Benign pigmented nevus 03/22/2014 Inflamed seborrheic keratosis 03/22/2014 Obesity 03/01/2014 Hypovitaminosis D 03/01/2014 Benign essential hypertension 03/01/2014 Depression with anxiety 01/21/2014 Foot pain, bilateral 12/01/2013 History of allergy 08/22/2012 Fibromyalgia 08/22/2012 Osteopenia 08/22/2012 Hypercholesterolemia 08/22/2012 Achilles tendinitis Left 04/24/2010 Immunizations Immunization Administration Dates Next Due Hepatitis B adult (ENGERIX-B/RECOMBIVAX HB ADULT) vaccine 1 mL IM 06/01/2002,01/08/2002,12/08/2001 INFLUENZA, SPLIT VIRUS, TRIVALENT, PF ,03/14/2006,03/22/2005,03/16,01/07/2003,01/28/2002,04/03/2000 Influenza, Trivalent, MDV, Injectable ,02/27/2011,03/17/2009,01/02 Novel [id number], Injectable 03/17/2009 Pneumococcal Polysaccharide Vaccine, 23 Valent 02/27/2011,02/01/1998 Social History Tobacco Use Types Packs/Day Years Used Date Smoking Tobacco: Never Smokeless Tobacco: Never Tobacco Cessation:Counseling Given: Not Answered Comments:: Alcohol Use Standard Drinks/Week Comments Yes 0 (1 standard drink = 0.6 oz pur e alcohol) socially Comments Unknown Sex and Gender Information Value Date Recorded Sex Assigned at Not on file Legal Sex Female 12:07 AM EDT Gender Identity Not on file Sexual Orientation Not on file Last Filed Vital Signs Vital Sign Reading Time Taken Comments Blood Pressure 143/91 02/14/2022 1:58 PM EST Pulse 72 02/14/2022 1:58 PM EST Temperature 36.8 ??C (98.2 ??F) 02/14/2022 1:58 PM ES T Respiratory Rate - - Oxygen Saturation - - Inhaled Oxygen Concentration - - Weight 89.8 kg (198 lb) 02/14/2022 1:58 PM EST Height 170.2 cm (5' 7 ) 02/14/2022 1:58 PM EST Body Mass Index 31.01 02/14/2022 1:58 PM EST Plan of Treatment Not on file Procedures * Due to [place] [employer] law, this organization might not be sharing negative HIV tests. Procedure Name Priority Date/Time Associated Diagnosis Comments [facility] SCREENING DIGITAL MAMMO Routine 07/20/2016 10:15 AM EDT DEXA SCAN Routine 12/30/2008 12:00 AM EDT COLONOSCOPY Routine 07/14/2007 12:00 AM EDT from Last 3 Months or Most Recently Relevant to Health Maintenance Results * Due to [place] [employer] law, this organization might not be sharing negative HIV tests. * [facility] Screening Digital Mammogram (07/20/2016 10:15 AM EDT) Anatomical Region Laterality Modality Breast Mammography 07/20/2016 9:41 AM EDT Narrative 08/01/2016 12:31 PM EDT ? DEPARTMENT OF RADIOLOGY Patient: JOLLY MAYORGA ?Unit #: [id number] Ordering MD: TACO BAUGH MD ?: 1955 Procedure: Digital Mammo Screen ? Age: 60 Location: MAMMO ? Exam Date: 07/20/16 Status: REG CLI ? Room/Bed: Primary MD: TACO BAUGH MD ? Patient ?Order: [id number] Additional Copy: ??TACO BAUGH MD - #[id number] - DIGSCRMAM BILATERAL DIGITAL TOMOSYNTHESIS SCREENING MAMMOGRAM WITH CAD: 07/20/2016 CLINICAL: Routine. Digital 2D mammogram, synthesized 2D views and 3D Tomosynthesis views were obtained. Current study was also evaluated with a Computer Aided Detection (CAD) system. Comparison is made to exams dated: ??05/06/2015 mammogram, 04/29/2015 ??mammogram, 04/22/2014 mammogram, and 04/21/2013 mammogram - [facility]. There are scattered areas of fibroglandular density in both breasts There are benign vascular calcifications and calcifications in both breasts. No significant masses, calcifications, or other findings are seen ??in either breast. There has been no significant interval change. IMPRESSION: BENIGN There is no mammographic evidence of malignancy. A 1 year screening mammogram is recommended. ?? This exam was interpreted at [facility]. ?? POI: [facility]. Electronically signed by: Norah Iniguez MD damon/penrad:08/01/2016 10:38:04 letter sent: A-2 Normal Benign Mammogram BI-RADS: 2 Benign ?? DANIA Procedure Note Norah Iniguez MD - 12/21/2022 DEPARTMENTOF RADIOLOGY Jose t: JOLLY MAYORGA Unit #:[id number] Ordering MD: TACO BAUGH MD :1955 Procedure: Digital Mammo Screen Age:60 Location: MAMMO ExamDate: 07/20/16 Status: REG [facility]/Bed: Primary MD: TACO BAUGH MD PatientAcct #: [id number] Order:[facility] Additional Copy: TACO BAUGH MD - #[id number] - DIGSCRMAM BILATERAL DIGITAL TOMOSYNTHESIS SCREENING MAMMOGRAM WITH CAD: 07/20/2016 CLINICAL: Routine. Digital 2D mammogram, synthesized 2D views and 3D Tomosynthesis views were obtained. Current study was also evaluated with a Computer Aided Detection (CAD) system. Comparison is made to exams dated: 05/06/2015 mammogram, 04/29/2015 mammogram, 04/22/2014 mammogram, and 04/21/2013 mammogram - [facility]. There are scattered areas of fibroglandular density in both breasts There are benign vascular calcifications and calcifications in both breasts. No significant masses, calcifications, or other findings are seen in either breast. There has been no significant interval change. IMPRESSION: BENIGN There is no mammographic evidence of malignancy. A 1 year screening mammogram is recommended. This exam was interpreted at [facility]. POI: [facility]. Electronically signed by: Norah jose/keith:08/01/2016 10:38:04 letter sent: A-2 Normal Benign Mammogram BI-RADS: 2 Benign DANIA Taco Baugh III, MD IM BI PROCEDURES F inal Result * DEXA SCAN (12/30/2008 12:00 AM EDT) Dexa Scan 12/30/2008 [facility] Anatomical Region Laterality Modality Other 12/30/2008 us Historical Conversion Provider HEALTH MAINTENANC E Final Result * COLONOSCOPY (07/14/2007 12:00 AM EDT) Colonoscopy Normal [facility] 07/14/2007 Historical Conversion Provider HEALTH MAINTENANC E Final Result [facility] from Last 3 Months or Most Recently Relevant to Health Maintenance Insurance [employer] MCR REPLACE PPO Care Teams Enterprise Account Manager Relationship Specialty Start Date End Date Neda Tatum MD PCP - General Internal Medicine 11/14/21
--- OUTSIDE RECORDS SUMMARY | 2024-07-20 10:35 | XMS_ITS | Clinical Summary ---
Author Organization [facility] Address [address] [place] [address] Care Team Providers Care Duplicator Punch Operator Name Role Phone Neda Tatum MD Primary Care Provider [phone] Allergies Active Allergy Reactions Criticality Noted Date [...] ,03/14/2006,03/22/2005,03/16,01/07/2003,01/28/2002,04/03/2000 Influenza, Trivalent, MDV, Injectable ,02/27/2011,03/17/2009,01/02 Novel [id number], Injectable 03/17/2009 Pneumococcal Polysaccharide Vaccine, 23 Valent 02/27/2011,02/01/1998 Family History Medical History Relation Name Comments Other Father Paternal histor y of Malignant Pleural Neoplasm Other Mother Maternal histor y of Dementia Other Other 1 Family history of Obesity Other Other 2 Family history of Cancer Other Other 3 Family history of Father At Age 66 Relation Name Status Comments Father Mother Other 1 Other 2 Other 3 Social History Tobacco Use Types Packs/Day Years [...] 02/14/2022 1:58 PM EST Plan of Treatment Health Maintenance Due Date Last Done Comments Basic Metabolic Panel 1955 Cologuard 1955 FOBT / Fit Test 1955 Hepatitis C Screening 1955 Sigmoidoscopy 1955 Pneumococcal Vaccine: 50+ Ye ars (2 of 2 - PCV) 02/28/2012 02/27/2011, 02/01/1998 Colon Cancer Screening 07/13/2017 Colonoscopy 07/13/2017 07/14/2007 Mammogram 07/20/2018 07/20/2016, 04/16/2012 COVID-19 Vaccine (2023-2 5 season) 2023 04/03/2021, 06/10/2020, 05/20/2020 Alcohol/Substance Use Screening 03/25/2024 Depression Screening and Follow-Up 03/25/2024 Health Care Proxy Review 03/25/2024 Social Drivers of Health Jolly ual Screening 03/25/2024 Influenza Vaccine (Season Ended) 2024 01/30/2022, 03/22/2021, 02/05/2020, Additional history exists DTaP,Tdap,and Td Vaccines (2 - Td or Tdap) 10/29/2026 10/29/2016 RSV Vaccine (60+ years old a nd patients) (1 - 1-dose 75+ series) 2029 Hepatitis B Vaccines Completed 06/01/2002, 01/08/2002, 12/08/2001 Osteoporosis Screening Completed 12/30/2008 Zoster Vaccines Completed 09/22/2021, 02/22, 05/13/2016 Procedures * Due to [place] [employer] law, this organization might not be sharing negative HIV tests. Procedure Name Priority Date/Time Associated Diagnosis Comments DANIA SCREENING DIGITAL MAMMO Routine 07/20/2016 10:15 AM EDT HM DEXA SCAN Routine 12/30/2008 12:00 AM EDT HM COLONOSCOPY Routine 07/14/2007 12:00 AM EDT from Last 3 Months or Most Recently Relevant to Health Maintenance Results * Due to [place] [employer] law, this organization might not be sharing negative HIV tests. * DANIA Screening Digital Mammogram (07/20/2016 10:15 AM EDT) Anatomical Region Laterality Modality Breast Mammography 07/20/2016 9:41 AM EDT Narrative 08/01/2016 12:31 PM EDT ? DEPARTMENT OF RADIOLOGY Patient: JOLLY MAYORGA ?Unit #: [id number] Ordering MD: VENU BAUGH MD ?: 1955 Procedure: Digital Mammo Screen ? Age: 60 Location: MAMMO ? Exam Date: 07/20/16 Status: REG CLI ? Room/Bed: Primary MD: VENU BAUGH MD ? Patient ?Order: PRASANNA Additional Copy: ??VENU BAUGH MD - #[id number] - DIGSCRMAM BILATERAL DIGITAL TOMOSYNTHESIS SCREENING MAMMOGRAM WITH CAD: 07/20/2016 CLINICAL: Routine. Digital 2D mammogram, synthesized 2D views and 3D Tomosynthesis views were obtained. Current study was also evaluated with a Computer Aided Detection (CAD) system. Comparison is made to exams dated: ??05/06/2015 mammogram, 04/29/2015 ??mammogram, 04/22/2014 mammogram, and 04/21/2013 mammogram - [facility]. There are scattered areas of fibroglandular density in both breasts There are benign vascular calcifications and calcifications in both breasts. No significant masses, calcifications, or other findings are seen ??in either breast. There has been no significant interval change. IMPRESSION: BENIGN There is no mammographic evidence of malignancy. A 1 year screening mammogram is recommended. ?? This exam was interpreted at [place]. ?? POI: [place]. Electronically signed by: Norah Iniguez MD damon/pentrnia:08/01/2016 10:38:04 letter sent: A-2 Normal Benign Mammogram BI-RADS: 2 Benign ?? [facility] Procedure Note Norah Iniguez MD - 12/21/2022 DEPARTMENTOF RADIOLOGY Jose t: JOLLY MAYORGA Unit #:[id number] Ordering MD: VENU BAUGH MD :1955 Procedure: Digital Mammo Screen Age:60 Location: MAMMO ExamDate: 07/20/16 Status: [facility]/Bed: Primary MD: VENU BAUGH MD PatientAcct #: [id number] [facility] Additional Copy: VENU BAUGH MD - #[id number] - DIGSCRMAM BILATERAL DIGITAL TOMOSYNTHESIS SCREENING MAMMOGRAM WITH CAD: 07/20/2016 CLINICAL: Routine. Digital 2D mammogram, synthesized 2D views and 3D Tomosynthesis views were obtained. Current study was also evaluated with a Computer Aided Detection (CAD) system. Comparison is made to exams dated: 05/06/2015 mammogram, 04/29/2015 mammogram, 04/22/2014 mammogram, and 04/21/2013 mammogram - [facility]. There are scattered areas of fibroglandular density in both breasts There are benign vascular calcifications and calcifications in both breasts. No significant masses, calcifications, or other findings are seen in either breast. There has been no significant interval change. IMPRESSION: BENIGN There is no mammographic evidence of malignancy. A 1 year screening mammogram is recommended. This exam was interpreted at [place]. POI: [place]. Electronically signed by: Norah Iniguez MD damon/keith:08/01/2016 10:38:04 letter sent: A-2 Normal Benign Mammogram BI-RADS: 2 Benign DANIA Venu Baugh III, MD IM BI PROCEDURES F inal Result * DEXA SCAN (12/30/2008 12:00 AM EDT) Dexa Scan 12/30/2008 [facility] Anatomical Region Laterality Modality Other 12/30/2008 Historical Conversion Provider HEALTH MAINTENANC E Final Result * COLONOSCOPY (07/14/2007 12:00 AM EDT) Colonoscopy Normal [facility] 07/14/2007 Historical Conversion Provider HEALTH MAINTENANC E Final Result [facility] from Last 3 Months or Most Recently Relevant to Health Maintenance Insurance [employer] PPO Care Teams Duplicator Punch Operator Relationship Specialty Start Date End Date Neda Tatum MD PCP - General Internal Medicine 11/14/21
--- OUTSIDE RECORDS SUMMARY | 2024-07-20 10:35 | XMS_ITS | Clinical Summary ---
Author Organization [facility] Address [address] [facility] [address] [place] [address] Phone Care Team Providers Care Bottle Washer Name Role Phone Senait Stone MD Primary Care Provider [phone] Medications amLODIPine (NORVASC) 5 MG tablet Take 5 mg by mouth 1 (one) time each day Active estradiol (ESTRACE) 0.1 MG/GM vaginal cream Insert 2 g into the vagina 1 (one) time each day Active hydroCHLOROthiaz jaimee 25 MG tablet Take 25 mg by mouth 1 (one) time each day Active Melatonin-Pyrido xine (MELATIN PO) Take by mouth Active ezetimibe (ZETIA) 10 MG tablet Take 10 mg by mouth 1 (one) time each day Active Cholecalciferol (Vitamin D) 50 MCG (1999) capsule Take 2,000 mg by mouth Active Active Problems Problem Noted Date Diagnosed Date Abnormal level of alkaline phosphatase Sickle cell arthropathy 03/07/2022 Essential (primary) hypertension 03/07/2022 Shortness of breath 03/07/2022 Edema 03/07/2022 Fatigue 03/07/2022 Fatty liver 03/07/2022 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, implants and grafts, initial encounter 03/07/2022 Lesion of skin of foot 03/07/2022 Hearing loss 03/07/2022 Hypercalcemia 03/07/2022 Urinary incontinence 03/07/2022 Family History Medical History Relation Comments Heart disease Mother Hypertension Mother Osteoporosis Mother Relation Status Comments Mother Social History Tobacco Use Types Packs/Day Years Used Date Smoking Tobacco: Never Smokeless Tobacco: Never Tobacco Cessation:Counseling Given: Not Answered Alcohol Use Standard Drinks/Week Comments Yes 5 (1 standard drink = 0.6 oz pur e alcohol) Comments Unknown Sex and Gender Information Value Date Recorded Sex Assigned at Not on file Legal Sex Female 9:54 AM EDT Gender Identity Not on file Sexual Orientation Not on file Last Filed Vital Signs Vital Sign Reading Time Taken Comments Blood Pressure 140/70 03/12/2022 3:18 PM EST Pulse 85 03/12/2022 3:18 PM EST Temperature - - Respiratory Rate - - Oxygen Saturation - - Inhaled Oxygen Concentration - - Weight 91.6 kg (202 lb) 03/12/2022 3:18 PM EST Height - - Body Mass Index - - Plan of Treatment Health Maintenance Due Date Last Done Comments Breast Cancer Screening 1955 Colorectal Cancer Screening: Annual FOBT 08/26/2003 Colorectal Cancer Screening: Colonoscopy 08/26/2003 Colorectal Cancer Screening: Sigmoidoscopy 08/26/2003 Pneumococcal Vaccine: 50+ Years (3 of 3 - PCV) 02/28/2012 02/27/2011, 02/01/1998 Influenza Vaccine (Season Ended) 2024 03/01/2014, 03/14/2006, 03/22/2005, Additional history exists Hepatitis B Vaccine Aged Out 06/01/2002, 01/08/2002, 12/08/2001 No longer eligible based on patient's age to complete this topic Insurance [facility] Care Teams Bottle Washer Relationship Specialty Start Date End Date Senait Stone MD [address] [place] [address] PCP - General Internal Medicine 03/12/22
--- OUTSIDE RECORDS SUMMARY | 2024-07-20 10:35 | XMS_ITS ---
Author Name [facility] Organization Unknown History of Medication Use Medication Directions Dispensed Refills Start Date End Date Stat us hydrochlorothiazide (HYDRODIURIL) 25 MG tablet 12/27/2021 active melatonin 3 MG Tab tablet Take 1 tablet (3 mg total) by mouth nightly. active Multiple Vitamins-Minerals (Oncovite) Tab Take 1 tablet by mouth daily. 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 active EncounterDiagnosisAct HHCCT Epiphora due to insufficient drainage of left side active EncounterDiagnosisAct HHCCT Encounters Encounter Type Encounter Reason Primary Diagnosis Location Date Ambulatory [facility] 09/03/2023 Ambulatory Urge incontinence Urge incontinence [facility] 11/28/2022 Ambulatory Urge incontinence Urge incontinence [facility] [employer] 10/24/2022 Ambulatory Postmenopausal atrophic vaginitis [employer] 09/26/2022 Ambulatory Urge incontinence [facility] 08/29/2022 Ambulatory Urge incontinence [facility] 07/25/2022 Ambulatory Urge incontinence [facility] 06/27/2022 Ambulatory Urge incontinence [facility] 06/15/2022 Ambulatory [facility] 05/28/2022 Ambulatory Frequency of micturition [facility] 05/23/2022 Ambulatory Urge incontinence [facility] 05/17/2022 Ambulatory Frequency of micturition [facility] 05/09/2022 Ambulatory Frequency of micturition [facility] 04/25/2022 Ambulatory Frequency of micturition [employer] 04/19/2022 Ambulatory Frequency of micturition [employer] 04/11/2022 Ambulatory Urge incontinence [facility] 04/05/2022 Ambulatory [facility]22 Ambulatory [facility] 03/14/2022 Ambulatory Urge incontinence [facility] 03/07/2022 Ambulatory Urge incontinence [facility] 03/02/2022 Ambulatory Urge incontinence [facility] 02/28/2022 Ambulatory [facility] 02/09/2022 Ambulatory Urge incontinence [facility] 02/07/2022 Ambulatory Stress incontine nce (female) (male) [facility] 01/31/2022 Ambulatory Unspecified symp toms and signs involving the genitourinary system [facility] 01/03/2022 Care Team Organization Name Specialty Phone Email Start Date End Da te [facility] 04/11/2022 06/10/2024 [facility] Primary Care 04/11/2022 04/11/2022 [facility] [place] Primary Care 04/05/2022 06/10/2024 [facility] [place] [facility] 04/05/2022 05/02/2022 [facility] PCP,No Primary Care 02/09/2022 06/10/2024 [facility] NO PCP Primary Care 01/03/2022 02/07/2022
--- OUTSIDE RECORDS SUMMARY | 2024-07-20 10:35 | XMS_ITS | Encounter Summary ---
Author Organization [facility], Address [address] [place] [address] Phone Care Team Providers Care Slinger Sequins Name Role Phone Senait Stone MD Primary Care Provider [phone] Encounter Details Date Type Department Care Team (Late st Contact Info) Description 12/28/2021 Documentation Only [facility], [address] [place] [address] Yeny Alexander [address] [place] [phone] Social History Tobacco Use Types Packs/Day Years Used Date Smoking Tobacco: Never Assessed Comments Unknown Sex and Gender Information Value Date Recorded Sex Assigned at Not on file Legal Sex Female 9:54 AM EDT Gender Identity Not on file Sexual Orientation Not on file documented as of this encounter Plan of Treatment Not on file documented as of this encounter Visit Diagnoses Not on filedocumented in this encounter Care Teams Slinger Sequins Relationship Specialty Start Date End Date Senait Stone MD [address] [place] [address] PCP - General Internal Medicine 03/12/22 documented as of this encounter
--- OUTSIDE RECORDS SUMMARY | 2024-07-20 10:36 | XMS_ITS | Clinical Summary ---
Author Organization [facility] Address [address] [place] [address] Care Team Providers Care Manager Balance Name Role Phone Senait Manley DDS Primary Care Provider [phone] Maggy Sweeney MD Unavailable [phone] Clarissa Adan APRN Unavailable [phone] Allergies Active Allergy Reactions Criticality Noted Date Comments Solifenacin Other (See Comments) 01/03/2022 Decreased bladder sensation. Blurry vision Medications amLODIPine (NORVASC) 5 MG tablet 12/27/2021 Active hydrochlorothiaz jaimee (HYDRODIURIL) 25 MG tablet 12/27/2021 Active ezetimibe (ZeTIA) 10 MG tablet 12/27/2021 Active Multiple Vitamins-Mineral s (Oncovite) Tab Take 1 tablet by mouth daily. Active melatonin 3 MG Tab tablet Take 1 tablet (3 mg total) by mouth nightly. Active VALERIAN ROOT PO Take by mouth. Active estradiol (ESTRACE) 0.01 % vaginal creamIndications :Atrophic vaginitis Insert 1 gram into the vagina twice a week. 42.5 g 1 09/26/2022 Active Active Problems No known active problems Social History Tobacco Use Types Packs/Day Years Used Date Smoking Tobacco: Never Assessed Comments Unknown Sex and Gender Information Value Date Recorded Sex Assigned at Female 04/22/2022 11:22 AM EST Legal Sex Female 11:04 AM EDT Gender Identity Female 04/22/2022 11:22 AM EST Sexual Orientation Choose not to disclose 2022 11:22 AM EST Last Filed Vital Signs Vital Sign Reading Time Taken Comments Blood Pressure 144/80 06/15/2022 10:09 AM EDT Pulse 88 06/15/2022 10:09 AM EDT Temperature - - Respiratory Rate - - Oxygen Saturation - - Inhaled Oxygen Concentration - - Weight 86.2 kg (190 lb) 06/15/2022 10:09 AM EDT Height 170.2 cm (5' 7 ) 06/15/2022 10:09 AM EDT Body Mass Index 29.76 06/15/2022 10:09 AM EDT Plan of Treatment Health Maintenance Due Date Last Done Comments Hepatitis C Virus Screening 1955 DTaP/Tdap/Td Vaccines (1 - Tdap) 1973 Mammogram 1994 Colonoscopy 08/26/1999 Pneumococcal Vaccines 50+ (1 of 1 - PCV) 2004 Zoster (Shingles) Vaccine (1 of 2) 2004 RSV Vaccine 60 years and older and Patients (1 - Risk 60-74 years 1-dose series) 2014 DXA Bone Density (Females,Ages 65 and older) 08/26/2019 Influenza Vaccine 10/24/2023 03/22/2021, , 01/13/2019, Additional history exists COVID-19 Vaccine ( season) 2023 04/03/2021, 06/10/2020, 05/20/2020 Hepatitis B Vaccines Aged Out No long er eligible based on patient's age to complete this topic Insurance BLUE [employer] MEDICARE OUT OF NETWORK [employer] MEDICARE OUT OF NETWORK Care Teams Manager Balance Relationship Specialty Start Date End Date Senait Manley, DDS [address] [place] [id number] PCP - General 04/11/22 Maggy Sweeney MD [address] [place] [address] Urogynecology 04/11/22 Clarissa Adan APRN [address] [address] Nurse Practitioner Urogynecology 06/15/22
[2024-07-20 10:48] LABS: Alanine Aminotransferase 24 U/L (0-31); Albumin Level 4.2 g/dL (3.5-5.0); Alkaline Phosphatase 82 U/L (39-117); Anion Gap 12 (12-20); Aspartate Amino Transferase 22 U/L (5-31); Bilirubin Total 0.9 mg/dL (0.0-1.0); Blood Urea Nitrogen 23 mg/dL (9-16); Calcium 9.5 mg/dL (8.4-10.2); Carbon Dioxide 30 mmol/L (22-29); Chloride 104 mmol/L (96-108); Cholesterol 283 mg/dL (<200); Estimated Glomerular Filt Rate > 60; Glucose Fasting 88 mg/dL (60-99); HDL Cholesterol 41 mg/dL (>40); LDL Cholesterol Calculated 192 mg/dL (<100); Potassium 3.8 mmol/L (3.3-5.1); Sodium 142 mmol/L (135-145); Total Protein 7.2 g/dL (6.5-8.0); Triglycerides 253 mg/dL (<150)
[2024-07-20 10:57] LABS: Creatinine Urine 100.05 mg/dL; Microalbum/Creatinine Ratio Ur 14.9 ug/mg cr (<30)
== END 2024-07-20 09:32 | disposition home or self-care (01) ==
LOC: HO.LAB 09:31
PROVIDERS: PCP Physician Assistant; Visit Provider Physician Assistant
DX: D49.89 Neoplasm of unspecified behavior of other specified sites (principal); I10 Essential (primary) hypertension; E78.2 Mixed hyperlipidemia; R74.8 Abnormal levels of other serum enzymes; Z79.899 Other long term (current) drug therapy
CPT/HCPCS: 36415; 80048; 80053; 80061; 82043; 82550; 82570; 85027; 96127; 99212

== ENCOUNTER 2024-07-20 10:01 | Outpatient (AMB) | payer MEDICARE, SELFPAY ==
[2024-07-20 10:14] VITALS: BP 110/80; PULSE 73; O2SAT 96; BMI 29.8
--- NOTE | 2024-07-20 10:14 | MHC.PC.OV ---
Vital Signs 07/20/24 10:14 Height 5 ft 6 in Weight 184 lb 8 oz BMI 29.8 BP 110/80 Blood Pressure Location Lt brachial Position Sitting Pulse 73 Pulse Source Pulse Oximeter Pulse Oximetry (%) 96 Oxygen Delivery Method Room Air Intake Visit Reasons: 3 Month F/U Industrial Specialist Required: No Accompanied by: Self / Same As Patient Allergies niacin Adverse Reaction (Intermediate, Verified 07/20/24 10:24) Rash solifenacin [From Vesicare] Adverse Reaction (Intermediate, Verified 07/20/24 10:21) Blurry Vision Medication List - Last Reconciled 07/20/24 by Herb Flores PA-C amlodipine 5 mg PO DAILY 90 days amlodipine 2.5 mg PO DAILY 90 days hydrochlorothiazide 25 mg PO DAILY 90 days niacin 100 mg PO DAILY 90 days Tobacco use date assessed: 07/20/24 Fall risk assessment: No Falls in past year Last assessed Fall Risk: 07/20/24 Dental Screening Dental Screen Date: 07/20/24 Did you have a dental visit in the last 12 months?: Yes Did you have a dental problem in the last 6 months where you did not have access to dental care?: No Was dental information given to patient?: Patient has dentist HPI 3 Month F/U HPI Details Patient is a 68-year-old female here today for routine annual physical. Patient has a past medical history significant for hypertension, chronically elevated CK levels, lacrimal gland tumor, mixed hyperlipidemia.. 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 She reports her vision is better and recently started driving. She reports she will need additional surgery though will hold off on this for now. Hypertriglyceridemia: Most recent labs have noted elevated triglycerides and total cholesterol. Has been on fibrates in the past though due to his CK levels these have been discontinued. She reports having a recent allergic reaction to niacin though attributes this to different manufacture of the medication. She will try [employer] brand niacin .. Hypertension: Blood pressure today in office acceptable. She now continues on amlodipine 5 mg. 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 1. Little interest or pleasure in doing things: not at all 2. Feeling down, depressed, or hopeless: not at all 3. Trouble falling or staying asleep, or sleeping too much: nearly every day 4. Feeling tired or having little energy: nearly every day 5. Poor appetite or overeating: not at all 6. Feeling bad about yourself - or that you are a failure or have let yourself or your family down: not at all 7. Trouble concentrating on things, such as reading the newspaper or watching television: more than half the days 8. Moving or speaking so slowly that other people could have noticed. Or the opposite - being so fidgety or restless that you have been moving around a lot more than usual: not at all 9. Thoughts that you would be better off or of hurting yourself in some way: not at all Total score: 8 Depression Screening Interpretation: Positive Depression Screening Follow-up: Existing condition Depression Screening Done: Yes 09955 - PHQ-9 Billing: Yes Source: Developed by Drs. Rayray Varghese, Norah Alfonso, Marty Echavarria and colleagues, with an educational eloina from [employer]. Thrive Questionnaire Date Thrive assessed: 07/20/24 I am a: Patient What is your living situation today?: I choose not to answer this question Within the past 12 months, did the food you bought not last and you didn't have the money to get more?: I choose not to answer this question Within the past 12 months, did you worry whether your food would run out before you got money to buy more?: I choose not to answer this question Do you have trouble paying for medicines?: I choose not to answer this question Do you have trouble getting transportation to medical appointments?: I choose not to answer this question Do you have trouble paying your heating and electricity bill?: I choose not to answer this question Do you have trouble taking care of your child, family member or friend?: I choose not to answer this question Do you have trouble with day-to-day activities such as bathing, preparing meals, shopping, managing finances, etc.?: I choose not to answer this question Are you currently unemployed and looking for a job?: I choose not to answer this question Are you interested in more education?: I choose not to answer this question Please select the resources that you would like help with: Daily support Currently or been in a relationship where the following occur: I choose not to answer THRIVE Score: 0 AUDIT C Alcohol Use Questionnaire (AUDIT-C) 1. How often do you have a drink containing alcohol?: Monthly or less 2. How many drinks containing alcohol do you have on a typical day when you are drinking?: 1 or 2 3. How often do you have six or more drinks on one occasion?: Never Total Score: 1 MI-7 AMB Questionnaire MI-7 Date MI - 7 assessed: 07/20/24 Feeling nervous, anxious, or on edge: 0 = Not at all Not being able to stop or control worryin = Not at all Worrying too much about different things: 0 = Not at all Trouble relaxin = More than half the days Being so restless that it is hard to sit still: 2 = More than half the days Becoming easily annoyed or irritable: 0 = Not at all Feeling afraid as if something awful might happen: 0 = Not at all Total MI-7 score (0-4 normal; 5-9 mild; 10-14 moderate; 15-21 severe): 4 Source: Developed by Drs. Rayray Varghese, Norah Alfonso, Marty Echavarria and colleagues, with an educational eloina from [employer] MI-7 Assessment Billing MI-7 Assessment Tool: MI-7 Assessment 44562 Physical exam (Primary Care) Vital Signs: Last Vital Signs Pulse 73 07/20/24 10:14 BP 110/80 07/20/24 10:14 Pulse Ox 96 07/20/24 10:14 Oxygen Delivery Method Room Air 07/20/24 10:14 BMI result Body Mass Index 29.8 Tobacco/Smoking Status: Tobacco use Status Tobacco use date assessed 07/20/24 07/20/24 10:19 Patient Tobacco Use Status Never used Tobacco 07/20/24 10:19 Tobacco use type Cigarette 07/20/24 10:19 e-Cigarette/Vaping Use Never Used 07/20/24 10:19 PHQ-9: PHQ-9 Score PHQ-9: Total score 8 07/20/24 10:19 Depression Screening Interpretation: Positive Depression Screening Follow-up: Existing condition Thrive Assessment: Date of Thrive Assessment Date Thrive assessed 07/20/24 07/20/24 10:19 Currently or been in a relationship where the following occur: I choose not to answer Coding Level of Care Code Est Pt Level 4 (64393) Diagnoses Lacrimal gland tumor D49.89 Essential hypertension I10 Mixed hyperlipidemia E78.2 Additional Codes PHQ-9 - 43493 - PHQ-9 Billing: Yes ([id number]) MI-7 Assessment Billing - MI-7 Assessment Tool: MI-7 Assessment 22340 ([id number]) Assessment & Plan Assessment & Plan (1) Lacrimal gland tumor: Code(s): D49.89 - Neoplasm of unspecified behavior of other specified sites Category: Medical Plan: Patient continues to go to [place] for her lacrimal gland tumor treatment. She has undergone radiation treatment. He reports she is doing much better and now able to drive. (2) Essential hypertension: Code(s): I10 - Essential (primary) hypertension Category: Medical Plan: Patient's blood pressure acceptable today in office. She continues on amlodipine 5 mg and hydrochlorothiazide 25 mg. Goal blood pressures to remain below 140/90 (3) Mixed hyperlipidemia: Code(s): E78.2 - Mixed hyperlipidemia Category: Medical Plan: Patient has a history borderline high cholesterol thus will continue to follow fasting lipid panel with goal LDL to remain below 130 and total cholesterol to be below 200 Orders: Orders Lipid Panel 6 Months E78.2 - Mixed hyperlipidemia Complete Blood Count no Diff 6 Months I10 - Essential (primary) hypertension Creatine Kinase Total Today R74.8 - Abnormal levels of other serum enzymes Creatine Kinase Total Today R74.8 - Abnormal levels of other serum enzymes Creatine Kinase Total Today R74.8 - Abnormal levels of other serum enzymes Creatine Kinase Total Today R74.8 - Abnormal levels of other serum enzymes Creatine Kinase Total Today R74.8 - Abnormal levels of other serum enzymes Creatine Kinase Total Today R74.8 - Abnormal levels of other serum enzymes Creatine Kinase Total Today R74.8 - Abnormal levels of other serum enzymes Creatine Kinase Total Today R74.8 - Abnormal levels of other serum enzymes Creatine Kinase Total Today R74.8 - Abnormal levels of other serum enzymes Creatine Kinase Total Today R74.8 - Abnormal levels of other serum enzymes Creatine Kinase Total Today R74.8 - Abnormal levels of other serum enzymes Creatine Kinase Total Today R74.8 - Abnormal levels of other serum enzymes Patient Instructions: Goal: Blood pressure to remain below 140/90 Barriers: Adherence to physical activity and healthy eating habits
--- OUTSIDE RECORDS SUMMARY | 2024-07-20 11:33 | XMS_ITS | Clinical Summary ---
Author Organization [facility] Address [address] [facility] [address] [place] [address] Phone Care Team Providers Care Information Assurance Officer Name Role Phone Senait Stone MD Primary Care Provider [phone] Medications amLODIPine (NORVASC) 5 MG tablet Take [...] patient's age to complete this topic Insurance [facility] Care Teams Information Assurance Officer Relationship Specialty Start Date End Date Senait Stone MD [address] [place] [address] PCP - General Internal Medicine 03/12/22
--- OUTSIDE RECORDS SUMMARY | 2024-07-20 11:33 | XMS_ITS | Clinical Summary ---
Author Organization [facility] Address [address] [place] [address] Care Team Providers Care Taper And Floater Name Role Phone Senait Manley DDS Primary Care Provider [phone] Maggy Sweeney MD Unavailable [phone] Clarissa Adan APRN Unavailable Allergies Active Allergy Reactions Criticality Noted Date [...] [employer] MEDICARE OUT OF NETWORK Care Teams Taper And Floater Relationship Specialty Start Date End Date Senait Manley, DDS [address] [place] [id number] PCP - General 04/11/22 Maggy Sweeney MD [address] [place] [phone] Urogynecology 04/11/22 Clarissa Adan APRN [address] [address] Nurse Practitioner Urogynecology 06/15/22
--- OUTSIDE RECORDS SUMMARY | 2024-07-20 11:33 | XMS_ITS | Referral Summary ---
Author Organization [facility] Address [address] [place] [address] Care Team Providers Care Rubber Splicer Name Role Phone Neda Tatum MD Primary Care Provider [phone] Allergies Active Allergy Reactions Criticality Noted Date [...] ,03/14/2006,03/22/2005,03/16,01/07/2003,01/28/2002,04/03/2000 Influenza, Trivalent, MDV, Injectable ,02/27/2011,03/17/2009,01/02 Novel Mmliiwrrp-[id number], Injectable 03/17/2009 Pneumococcal Polysaccharide Vaccine, 23 Valent [...] Not on file Procedures * Due to [place] [employer] law, this organization might not be sharing negative HIV tests. Procedure Name Priority Date/Time Associated Diagnosis Comments [facility] SCREENING DIGITAL MAMMO Routine 07/20/2016 10:15 AM EDT DEXA SCAN Routine 12/30/2008 12:00 AM EDT COLONOSCOPY Routine 07/14/2007 12:00 AM EDT from Last 3 Months or Most Recently Relevant to Health Maintenance Results * Due to [place] [employer] law, this organization might not be sharing negative HIV tests. * [facility] Screening Digital Mammogram (07/20/2016 10:15 AM EDT) Anatomical Region Laterality Modality Breast Mammography 07/20/2016 9:41 AM EDT Narrative 08/01/2016 12:31 PM EDT ? DEPARTMENT OF RADIOLOGY Patient: JOLLY MAYORGA ?Unit #: [id number] Ordering MD: TACO BAUGH MD ?: 1955 Procedure: Digital Mammo Screen ? Age: 60 Location: MAMMO ? Exam Date: 07/20/16 Status: REG CLI ? Room/Bed: Primary MD: TACO BAUGH MD ? Patient ?Order: DIGSCRMAM Additional Copy: ??TACO BAUGH MD - #[id number] - DIGSCRMAM BILATERAL DIGITAL TOMOSYNTHESIS SCREENING MAMMOGRAM WITH CAD: 07/20/2016 CLINICAL: Routine. Digital 2D mammogram, synthesized 2D views and 3D Tomosynthesis views were obtained. Current study was also evaluated with a Computer Aided Detection (CAD) system. Comparison is made to exams dated: ??05/06/2015 mammogram, 04/29/2015 ??mammogram, 04/22/2014 mammogram, and 04/21/2013 mammogram - [facility]. There are scattered areas of fibroglandular density in both breasts There are benign vascular calcifications and calcifications in both breasts. No significant masses, calcifications, or other findings are seen ??in either breast. There has been no significant interval change. IMPRESSION: BENIGN There is no mammographic evidence of malignancy. A 1 year screening mammogram is recommended. ?? This exam was interpreted at [place]. ?? POI: [place]. Electronically signed by: Norah Iniguez MD damon/penrad:08/01/2016 10:38:04 letter sent: A-2 Normal Benign Mammogram BI-RADS: 2 Benign ?? DANIA Procedure Note Norah Iniguez MD - 12/21/2022 DEPARTMENTOF RADIOLOGY Jose t: JOLLY MAYORGA Unit #:[id number] Ordering MD: TACO BAUGH MD :1955 Procedure: Digital Mammo Screen Age:60 Location: MAMMO ExamDate: 07/20/16 Status: REG [facility]/Bed: Primary MD: TACO BAUGH MD PatientAcct #: [id number] Order:[facility] Additional Copy: TACO BAUGH MD - #[id number] - DIGSCRMAM BILATERAL DIGITAL TOMOSYNTHESIS SCREENING MAMMOGRAM WITH CAD: 07/20/2016 CLINICAL: Routine. Digital 2D mammogram, synthesized 2D views and 3D Tomosynthesis views were obtained. Current study was also evaluated with a Computer Aided Detection (CAD) system. Comparison is made to exams dated: 05/06/2015 mammogram, 04/29/2015 mammogram, 04/22/2014 mammogram, and 04/21/2013 mammogram - [facility]. There are scattered areas of fibroglandular density in both breasts There are benign vascular calcifications and calcifications in both breasts. No significant masses, calcifications, or other findings are seen in either breast. There has been no significant interval change. IMPRESSION: BENIGN There is no mammographic evidence of malignancy. A 1 year screening mammogram is recommended. This exam was interpreted at [place]. POI: [place]. Electronically signed by: Norah jose/keith:08/01/2016 10:38:04 letter sent: A-2 Normal Benign Mammogram BI-RADS: 2 Benign DANIA Taco Baugh III, MD IM BI PROCEDURES F inal Result * DEXA SCAN (12/30/2008 12:00 AM EDT) Dexa Scan 12/30/2008 [facility] Anatomical Region Laterality Modality Other 12/30/2008 us Historical Conversion Provider HEALTH MAINTENANC E Final Result * COLONOSCOPY (07/14/2007 12:00 AM EDT) Colonoscopy Normal [facility] 07/14/2007 Historical Conversion Provider HEALTH MAINTENANC E Final Result [facility] from Last 3 Months or Most Recently Relevant to Health Maintenance Insurance [employer] MCR REPL[employer] PPO Care Teams Rubber Splicer Relationship Specialty Start Date End Date Neda Tatum MD PCP - General Internal Medicine 11/14/21
--- OUTSIDE RECORDS SUMMARY | 2024-07-20 11:33 | XMS_ITS | Continuity of Care Document ---
Author Organization [facility] Address [address] [place] [phone] Phone Care Team Providers Care Medical Device Engineer Name Role Phone Carolynn Monk MD Unavailable Unavailable Medications Medication Instructions Dosage Effective Dates (start - stop) Status Comments Maxitrol 3.5 mg/mL-10,000 unit/mL-0.1% eye drops,suspension instill 1 drop by ophthalmic route twice a day in the left eye for 2 weeks - Active Procedures Procedure Date OFFICE/OUTPATIENT VISIT, EST EYE EXAM & TREATMENT POSTOP FOLLOW-UP VISIT POSTOP FOLLOW-UP VISIT Level IV - Surg Path, Gross & Micro No M argins FROZEN SECTION SINGLE REMOVE EYELID LESION OFFICE/OUTPATIENT VISIT, [facility] Advance Directives Directive Yes / No Effective Date File Name No Information Encounters Encounter Description Practice Location Reason(s) For Visit Diagnoses Date Provider Providers Copied on Encounter OFFICE/OUTPA TIENT VISIT, EST [facility], [address] [place] [address], [id number], [place] tel:[phone] Oculoplastic Resident Service follow up (chief complaint) PVD OUMalignant neoplasm of left orbit 5 Lacho Pradhan. [address] [place] [address], [address], [place], [id number], [place]. tel:[phone] [facility], [address] [place] [address], [id number], [place] tel:[phone] [facility] Service Floaters (chief complaint) Malignant neoplasm of left orbitPVD OUVitreous floaters Bilateral Eyes 4 Sincere Gutiérrez. [address] [place] [address], [address], [place], [place], [id number], [place]. tel:[phone] [facility], [address] [place] [address], [id number], [place] tel:[phone] Oculoplastic Resident Service Malignant neoplasm of left orbit 4 [facility] [address] [place] [address], Any Location, [place], [address], [place]. tel:[phone] [facility], [address] [place] [address], [id number], [place] tel:[phone] Oculoplastic Resident Service post op (chief complaint) Epiphora, left sideMalignant neoplasm of left orbit 4 Lacho Pradhan. [address] [place] [address], [address], [place], [place], [id number], [place]. tel:[phone] [facility], [address] [place] [address], [id number], [place] tel:[phone] Pathology No Information 4 Shannan Popa. [address] [place] [address], [address], [place], [address]. tel:[phone] Referring Provider: Carolynn Lares, [address] [place] [address] [address], [place], [address] . tel:[phone] [facility], [address] [place] [address], [id number], [place] tel:[phone] Oculoplastic Resident Service routine exam (chief complaint) Benign eyelid neoplasm 4 Lacho Pradhan. [address] [place] [address], [address], [place], [place], [id number], [place]. tel:[phone] OFFICE/OUTPA TIENT VISIT, NEW [facility], [address] [place] [address] , [place], [id number], [place] tel:[phone] Oculoplastic Resident Service DCR Eval (chief complaint) Epiphora, left side 4 Lacho Pradhan. [address] [facility], [address], [place], [place], [id number], [place]. tel:[phone] Family History Family Member Type Diagnosis Age At Onset Mother Problem (finding) glacoma Father Problem (finding) cancer Mother Problem (finding) macular degeneration Payers Payer name Insurance type Covered republican ID Authoriza tion(s) No Information Social History Type Description Quantity Date Captured Comments Alcohol Use Details Unknown Caffeine Use Details Unknown Tobacco Use Status No Information Smoking Status No Information Sex Female Chief Complaint And Reason For Visit From encounter dated '03/30/2024 12:00'. follow up (chief complaint). Description: The 68 year old patient presents for evaluation of followup. Reason For Referral Reason For Referral No Information History Of Present Illness Encounter Date Complaint History Of Prese nt Illness follow up The 68 year old patient presents for evaluation of follow up. 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
--- OUTSIDE RECORDS SUMMARY | 2024-07-20 11:33 | XMS_ITS | Clinical Summary ---
Author Organization [facility] Address [address] [place] [address] Care Team Providers Care Skates Operator Name Role Phone Neda Tatum MD Primary Care Provider [phone] Allergies Active Allergy Reactions Criticality Noted Date [...] ,03/14/2006,03/22/2005,03/16,01/07/2003,01/28/2002,04/03/2000 Influenza, Trivalent, MDV, Injectable ,02/27/2011,03/17/2009,01/02 Novel [id number], Injectable 03/17/2009 Pneumococcal Polysaccharide Vaccine, 23 Valent [...] 09/22/2021, 02/22, 05/13/2016 Procedures * Due to [place] [employer] law, this organization might not be sharing negative HIV tests. Procedure Name Priority Date/Time Associated Diagnosis Comments DANIA SCREENING DIGITAL MAMMO Routine 07/20/2016 10:15 AM EDT HM DEXA SCAN Routine 12/30/2008 12:00 AM EDT HM COLONOSCOPY Routine 07/14/2007 12:00 AM EDT from Last 3 Months or Most Recently Relevant to Health Maintenance Results * Due to [place] [employer] law, this organization might not be sharing negative HIV tests. * DANIA Screening Digital Mammogram (07/20/2016 10:15 AM EDT) Anatomical Region Laterality Modality Breast Mammography 07/20/2016 9:41 AM EDT Narrative 08/01/2016 12:31 PM EDT ? DEPARTMENT OF RADIOLOGY Patient: JOLLY MAYORGA ?Unit #: [id number] Ordering MD: VENU BAUGH MD ?: 1955 Procedure: Digital Mammo Screen ? Age: 60 Location: MAMMO ? Exam Date: 07/20/16 Status: REG CLI ? Room/Bed: Primary MD: VENU BAUGH MD ? Patient ?Order: PRASANNA Additional Copy: ??VENU BAUGH MD - #[id number] - DIGSCRMAM BILATERAL DIGITAL TOMOSYNTHESIS SCREENING MAMMOGRAM WITH CAD: 07/20/2016 CLINICAL: Routine. Digital 2D mammogram, synthesized 2D views and 3D Tomosynthesis views were obtained. Current study was also evaluated with a Computer Aided Detection (CAD) system. Comparison is made to exams dated: ??05/06/2015 mammogram, 04/29/2015 ??mammogram, 04/22/2014 mammogram, and 04/21/2013 [facility]ogram [facility]. There are scattered areas of fibroglandular density in both breasts There are benign vascular calcifications and calcifications in both breasts. No significant masses, calcifications, or other findings are seen ??in either breast. There has been no significant interval change. IMPRESSION: BENIGN There is no mammographic evidence of malignancy. A 1 year screening mammogram is recommended. ?? This exam was interpreted at [facility]. ?? POI: [facility]. Electronically signed by: Norah Iniguez MD damon/pentrina:08/01/2016 10:38:04 letter sent: A-2 Normal Benign Mammogram BI-RADS: 2 Benign ?? [facility] Procedure Note Norah Iniguez MD - 12/21/2022 DEPARTMENTOF RADIOLOGY Jose t: JOLLY MAYORGA Unit #:[id number] Ordering MD: VENU BAUGH MD :1955 Procedure: Digital Mammo Screen Age:60 Location: MAMMO ExamDate: 07/20/16 Status: [facility]/Bed: Primary MD: VENU BAUGH MD PatientAcct #: [id number] [facility] Additional Copy: VENU BAUGH MD - #[id number] - DIGSCRMAM BILATERAL DIGITAL TOMOSYNTHESIS SCREENING MAMMOGRAM WITH CAD: 07/20/2016 CLINICAL: Routine. Digital 2D mammogram, synthesized 2D views and 3D Tomosynthesis views were obtained. Current study was also evaluated with a Computer Aided Detection (CAD) system. Comparison is made to exams dated: 05/06/2015 mammogram, 04/29/2015 mammogram, 04/22/2014 mammogram, and 04/21/2013 mammogram - [facility]. There are scattered areas of fibroglandular density in both breasts There are benign vascular calcifications and calcifications in both breasts. No significant masses, calcifications, or other findings are seen in either breast. There has been no significant interval change. IMPRESSION: BENIGN There is no mammographic evidence of malignancy. A 1 year screening mammogram is recommended. This exam was interpreted at [facility]. POI: [facility]. Electronically signed by: Norah Iniguez MD damon/keith:08/01/2016 10:38:04 letter sent: A-2 Normal Benign Mammogram BI-RADS: 2 Benign DANIA Venu Baugh III, MD IM BI PROCEDURES F inal Result * DEXA SCAN (12/30/2008 12:00 AM EDT) Dexa Scan 12/30/2008 [facility] Anatomical Region Laterality Modality Other 12/30/2008 Historical Conversion Provider HEALTH MAINTENANC E Final Result * COLONOSCOPY (07/14/2007 12:00 AM EDT) Colonoscopy Normal [facility] 07/14/2007 Historical Conversion Provider HEALTH MAINTENANC E Final Result [facility] from Last 3 Months or Most Recently Relevant to Health Maintenance Insurance BS MCR REPLACE PPO Care Teams Skates Operator Relationship Specialty Start Date End Date Neda Tatum MD PCP - General Internal Medicine 11/14/21
--- OUTSIDE RECORDS SUMMARY | 2024-07-20 11:33 | XMS_ITS | Encounter Summary ---
Author Organization [facility], Address [address] [place] [address] Phone Care Team Providers Care Forestry Faculty Member Name Role Phone Senait Stone MD Primary Care Provider [phone] Encounter Details Date Type Department Care Team (Late st Contact Info) Description 12/28/2021 Documentation Only [facility], [address] [place] [address] Yeny Alexander [address] [place] [id number] Social History Tobacco Use Types Packs/Day Years [...] on filedocumented in this encounter Care Teams Forestry Faculty Member Relationship Specialty Start Date End Date Senait Stone MD [address] [place] [address] PCP - General Internal Medicine 03/12/22 documented as of this encounter
== END 2024-07-20 10:35 | disposition home or self-care (01) ==
LOC: HO.HMCH 10:01
PROVIDERS: PCP Physician Assistant; Visit Provider Physician Assistant
DX: D49.89 Neoplasm of unspecified behavior of other specified sites (principal); I10 Essential (primary) hypertension; E78.2 Mixed hyperlipidemia

== ENCOUNTER → 2024-09-23 15:16 | Outpatient (REF) | payer MEDICARE, SELFPAY ==
--- OUTSIDE RECORDS SUMMARY | 2024-08-24 10:15 | XMS_ITS | Continuity of Care Document ---
Author Organization [facility] Address [address] [place] [phone] Phone Care Team Providers Care Sales Ambassador Name Role Phone Alessandra VENTURA, Kip Unavailable Unavailabl e Allergies, Adverse Reactions, Alerts Substance Reaction Status Criticality SOLIFENACIN SUCCINATE Active No Inf ormation Medications Medication Instructions Dosage Effective Dates (start - stop) Status Comments Maxitrol 3.5 mg/mL-10,000 unit/mL-0.1% eye drops,suspension instill 1 drop by ophthalmic route twice a day in the left eye for 2 weeks - Active Procedures Procedure Date Duplicate Encounter VISUAL FIELD EXAMINATION(S) OFFICE/OUTPATIENT VISIT, EST OFFICE/OUTPATIENT VISIT, EST EYE EXAM & TREATMENT POSTOP FOLLOW-UP VISIT POSTOP FOLLOW-UP VISIT Level IV - Surg Path, Gross & Micro No M argins FROZEN SECTION SINGLE REMOVE EYELID LESION OFFICE/OUTPATIENT VISIT, NEW Advance Directives Directive Yes / No Effective Date File Name No Information Encounters Encounter Description Practice Location Reason(s) For Visit Diagnoses Date Provider Providers Copied on Encounter [facility], [address] [place] [address], [place], [place], [id number], [place] tel:[phone] Diagnostic Center No Information Argelia Shin. [address] [place] [address], [address], [place], [place], [id number]. tel:[phone] OFFICE/OUTPA TIENT VISIT, EST [facility], [address] [place] [address], [id number], tel:[phone] Oculoplastic Manager Of Supply Chain Service Malignant neoplasm of left orbit (chief complaint) Malignant neoplasm of left orbitDermatoc halasis of unspecified eye, unspecified eyelidEpiphor a, left side Kaiden-0 2- 5 Marmoe Pradhan. [address] [place] [address], [address], [place], [place], [id number], [place]. tel:[phone] OFFICE/OUTPA TIENT VISIT, EST [facility], [address] [place] [address], [id number], [place] tel:[phone] Oculoplastic Resident Service follow up (chief complaint) PVD OUMalignant neoplasm of left orbit Jose Alfredo-0 5 Marmoe Pradhan. [address] [place] [address], [address], [place], [place], [id number], [place]. tel:[phone] [facility], [address] [place] [address], [id number], [place] tel:[phone] [facility] Service Floaters (chief complaint) Malignant neoplasm of left orbitPVD OUVitreous floaters Bilateral Eyes Jan-2 4 Sincere Gutiérrez. [address] [place] [address], [address], [place], [place], [id number], [place]. tel: [phone] [facility], [address] [place] [address], [id number], [place] tel:[phone] Oculoplastic Resident Service Malignant neoplasm of left orbit Jan-0 - 4 [facility] [address] [place] [address] Location, [place], [address], [place]. tel:[phone] [facility], [address] [place] [address], [id number], [place] tel:[phone] Oculoplastic Resident Service post op (chief complaint) Epiphora, left sideMalignant neoplasm of left orbit Oct-0 7-202 4 Lacho Pradhan. [address] [place] [address], [address], [place], [place], [id number], [place]. tel:[phone] [facility], [address] [place] [address], [id number], tel:[phone] Pathology No Information 4 Shannan Hernandez. [address] [place] [address], [address], [place], [address]. [phone] Referring Provider: Carolynn Lares, [address] [place] [address] [address], [place], [address] . tel:[phone] [facility], [address] [place] [address], [id number], [place] tel:[phone] Oculoplastic Resident Service routine exam (chief complaint) Benign eyelid neoplasm 4 Lacho Pradhan. [address] [place] [address], [address], [place], [place], [id number], [place]. tel:[phone] OFFICE/OUTPA TIENT VISIT, [facility], [address] [place] [address], [id number], [place] tel:[phone] Oculoplastic Resident Service DCR Eval (chief complaint) Epiphora, left side 4 Lacho Pradhan. [address] [place] [address], [address], [place], [place], [id number], [place]. tel:[phone] Family History Family Member Type Diagnosis Age At Onset Mother Problem (finding) glacoma Father Problem (finding) cancer Mother Problem (finding) macular degeneration Payers Payer name Insurance type Covered green party ID Authoriza tion(s) Blue Medicare Advantage BL [id number] Social History Type Description Quantity Date Captured Comments Sex Female Smoking Status No Information Chief Complaint And Reason For Visit No Information Reason For Referral Reason For Referral No Information Plan Of Treatment Date Type Action Status Appointment Lexie Mayorga Dr. Marous BOO KED Appointment Lexie Mayorga BOOKED History Of Present Illness Encounter Date Complaint History Of Prese nt Illness Malignant neoplasm of left orbit The 68 year old patient presents for 6 month follow-up of malignant neoplasm of left orbit. 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
--- NOTE | 2024-09-23 15:30 | ECG_ITS ---
Test Reason : PREOP Blood Pressure : */* mmHG Vent. Rate : 75 BPM Atrial Rate : 75 BPM P-R Int : 178 ms QRS Dur : 86 ms QT Int : 414 ms P-R-T Axes : 39 -12 33 degrees QTcB Int : 462 ms Normal sinus rhythm Moderate voltage criteria for LVH, may be normal variant ( R in aVL , [place] product ) Borderline ECG When compared with ECG of 12-Dec-2023 07:34, No significant change was found Referred By: Kerline Monk Electronically Signed By: ANICETO ARAUZ MD
--- OUTSIDE RECORDS SUMMARY | 2024-09-23 15:38 | XMS_ITS ---
Author Name [facility] Organization Unknown History of Medication Use Medication Directions Dispensed Refills Start Date End Date Stat us hydrochlorothiazide (HYDRODIURIL) 25 MG tablet 12/27/2021 active melatonin 3 MG Tab tablet Take 1 tablet (3 mg total) by mouth nightly. active Multiple Vitamins-Minerals (Oncovite) Tab Take 1 tablet by mouth daily. active Allergies Allergen Reaction Severity Comment Documented Date Source Statu s SOLIFENACIN OTHER (SEE COMMENTS) Decreased bladder sensation. 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 EncounterDiagnosisAct [facility] Encounters Encounter Type Encounter Reason Primary Diagnosis Location Date Ambulatory [facility] 09/03/2023 Ambulatory Urge incontinence Urge incontinence [facility] 11/28/2022 Ambulatory Urge incontinence Urge incontinence [facility] 10/24/2022 Ambulatory Postmenopausal atrophic vaginitis [facility] 09/26/2022 Ambulatory Urge incontinence [facility] 08/29/2022 Ambulatory Urge incontinence [facility] [employer] 07/25/2022 Ambulatory Urge incontinence [facility] 06/27/2022 Ambulatory Urge incontinence [facility] 06/15/2022 Ambulatory [facility] 05/28/2022 Ambulatory Frequency of micturition [facility] 05/23/2022 Ambulatory Urge incontinence [facility] 05/17/2022 Ambulatory Frequency of micturition [facility] 05/09/2022 Ambulatory Frequency of micturition [facility] 04/25/2022 Ambulatory Frequency of micturition [facility] 04/19/2022 Ambulatory Frequency of micturition [facility] [employer] [facility] 04/11/2022 Ambulatory Urge incontinence [facility] [employer] 04/05/2022 Ambulatory Urge incontinence [facility] [employer] 03/28/2022 Ambulatory Urge incontinence [facility] [employer] 03/14/2022 Ambulatory Urge incontinence [facility] [employer] 03/07/2022 Ambulatory Urge incontinence [facility] [employer] 03/02/2022 Ambulatory Urge incontinence [facility] [employer] 02/28/2022 Ambulatory [facility] [employer] 02/09/2022 Ambulatory Urge incontinence [facility] [employer] 02/07/2022 Ambulatory Stress incontine nce (female) (male) [facility] 01/31/2022 Ambulatory Unspecified symp toms and signs involving the genitourinary system [employer] 01/03/2022 Care Team Organization Name Specialty Phone Email Start Date End Da te [facility] Primary [facility] 04/11/2022 06/10/2024 [facility] Primary Care 04/11/2022 04/11/2022 [facility] [place] Primary Care 04/05/2022 06/10/2024 [employer] [facility] [place] Primary Care 04/05/2022 05/02/2022 [facility] [employer] PCP,No Primary Care 02/09/2022 06/10/2024 [employer] NO PCP Primary Care 01/03/2022 02/07/2022
--- OUTSIDE RECORDS SUMMARY | 2024-09-23 15:38 | XMS_ITS | Clinical Summary ---
Author Organization [facility] Address [address] [place] [address] Care Team Providers Care Highway Patrol Pilot Name Role Phone Senait Manley DDS Primary Care Provider [phone] Maggy Sweeney MD Unavailable [phone] Clarissa Adan APRN Unavailable Allergies Active Allergy [...] Zoster (Shingles) Vaccine (1 of 2) 2004 DXA Bone Density (Females,Ages 65 and older) 08/26/2019 COVID-19 Vaccine ( season) 2023 04/03/2021, 06/10/2020, 05/20/2020 Influenza Vaccine 10/23/2024 03/22/2021, , 01/13/2019, Additional history exists RSV Vaccine 60 years and older and Patients (1 - 1-dose 75+ series) 2029 Hepatitis B Vaccines Aged Out No long er eligible based on patient's age to complete this topic Insurance BLUE CROSS MGD MEDICARE OUT OF NETWORK BLUE CROSS MGD MEDICARE OUT OF NETWORK Care Teams Highway Patrol Pilot Relationship Specialty Start Date End Date Senait Manley, DDS [address] [place] [id number] PCP - General 04/11/22 Maggy Sweeney MD [address] [place] [address] Urogynecology 04/11/22 Clarissa Adan APRN [address] [address] Nurse Practitioner Urogynecology 06/15/22
--- OUTSIDE RECORDS SUMMARY | 2024-09-23 15:38 | XMS_ITS | Clinical Summary ---
Author Organization [facility] Address [address] [place] [address] Care Team Providers Care Trading Assistant Name Role Phone Neda Tatum MD Primary Care Provider [phone] Allergies Active Allergy Reactions Criticality Noted Date [...] ,03/14/2006,03/22/2005,03/16,01/07/2003,01/28/2002,04/03/2000 Influenza, Trivalent, MDV, Injectable ,02/27/2011,03/17/2009,01/02 Novel [id number], Injectable 03/17/2009 Pneumococcal Polysaccharide Vaccine, 23 Valent [...] 72 02/14/2022 1:58 PM EST Temperature 36.8 C (98.2 F) 02/14/2022 1:58 PM EST Respiratory Rate - - Oxygen Saturation - [...] 09/22/2021, 02/22, 05/13/2016 Procedures * Due to [place] [employer] law, this organization might not be sharing negative HIV tests. Procedure Name Priority Date/Time Associated Diagnosis Comments DANIA SCREENING DIGITAL MAMMO Routine 07/20/2016 10:15 AM EDT HM DEXA SCAN Routine 12/30/2008 12:00 AM EDT HM COLONOSCOPY Routine 07/14/2007 12:00 AM EDT from Last 3 Months or Most Recently Relevant to Health Maintenance Results * Due to [place] [employer] law, this organization might not be sharing negative HIV tests. * [facility] Screening Digital Mammogram (07/20/2016 10:15 AM EDT) Anatomical Region Laterality Modality Breast Mammography 07/20/2016 9:41 AM EDT Narrative 08/01/2016 12:31 PM EDT DEPARTMENT OF RADIOLOGY Patient: JOLLY MAYORGA Unit #: [id number] Ordering MD: VENU BAUGH MD : 1955 Procedure: Digital Mammo Screen Age: 60 Location: MAMMO Exam Date: 07/20/16 Status: [facility] Room/Bed: Primary MD: VENU BAUGH MD Patient Order: [facility] Additional Copy: VENU BAUGH MD - #[id number] - DIGSCRMAM BILATERAL DIGITAL TOMOSYNTHESIS SCREENING MAMMOGRAM WITH CAD: 07/20/2016 CLINICAL: Routine. Digital 2D mammogram, synthesized 2D views and 3D Tomosynthesis views were obtained. Current study was also evaluated with a Computer Aided Detection (CAD) system. Comparison is made to exams dated: 05/06/2015 mammogram, 04/29/2015 mammogram, 04/22/2014 mammogram, and 04/21/2013 mammogram - [facility]. There are scattered areas of fibroglandular density in both breasts There are benign vascular calcifications and calcifications in both breasts. No significant masses, calcifications, or other findings are seen in either breast. There has been no significant interval change. IMPRESSION: BENIGN There is no mammographic evidence of malignancy. A 1 year screening mammogram is recommended. This exam was interpreted at [place]. POI: [place]. Electronically signed by: Norah jose/keith:08/01/2016 10:38:04 letter sent: A-2 Normal Benign Mammogram BI-RADS: 2 Benign [facility] Procedure Note Noarh Iniguez MD - 12/21/2022 DEPARTMENTOF RADIOLOGY Jose t: JOLLY MAYORGA Unit #:[id number] Ordering MD: VENU BAUGH MD :1955 Procedure: Digital Mammo Screen Age:60 Location: MAMMO ExamDate: 07/20/16 Status: REG [facility]/Bed: Primary MD: VENU BAUGH MD PatientAcct #: [id number] Order:[facility] Additional Copy: VENU BAUGH MD - #[id number] - DIGSCRMAM BILATERAL DIGITAL TOMOSYNTHESIS SCREENING MAMMOGRAM WITH CAD: 07/20/2016 CLINICAL: Routine. Digital 2D mammogram, synthesized 2D views and 3D Tomosynthesis views were obtained. Current study was also evaluated with a Computer Aided Detection (CAD) system. Comparison is made to exams dated: 05/06/2015 mammogram, 04/29/2015 mammogram, 04/22/2014 mammogram, and 04/21/2013 mammogram - [facility]. There are scattered areas of fibroglandular density in both breasts There are benign vascular calcifications and calcifications in both breasts. No significant masses, calcifications, or other findings are seen in either breast. There has been no significant interval change. IMPRESSION: BENIGN There is no mammographic evidence of malignancy. A 1 year screening mammogram is recommended. This exam was interpreted at [place]. POI: [place]. Electronically signed by: Norah jose/keith:08/01/2016 10:38:04 letter sent: A-2 Normal Benign Mammogram BI-RADS: 2 Benign DANIA Venu Baugh III, MD IM BI PROCEDURES F inal Result * DEXA SCAN (12/30/2008 12:00 AM EDT) Dexa Scan 12/30/2008 [facility] Anatomical Region Laterality Modality Other 12/30/2008 us Historical Conversion Provider HEALTH MAINTENANC E Final Result * COLONOSCOPY (07/14/2007 12:00 AM EDT) Colonoscopy Normal [facility] 07/14/2007 us Historical Conversion Provider HEALTH MAINTENANC E Final Result [facility] from Last 3 Months or Most Recently Relevant to Health Maintenance Insurance BS [employer] PPO Care Teams Trading Assistant Relationship Specialty Start Date End Date Neda Tatum MD PCP - General Internal Medicine 11/14/21
--- OUTSIDE RECORDS SUMMARY | 2024-09-23 15:38 | XMS_ITS | Encounter Summary ---
Author Organization [facility], Address [address] [place] [address] Phone Care Team Providers Care Odd Job Worker Name Role Phone Senait Stone MD Primary Care Provider [phone] Encounter Details Date Type Department Care Team (Late st Contact Info) Description 12/28/2021 Documentation Only [facility], [address] [place] [address] Yeny Alexander [address] [place] [address] Social History Tobacco Use Types Packs/Day Years [...] on filedocumented in this encounter Care Teams Odd Job Worker Relationship Specialty Start Date End Date Senait Stone MD [address] [place] [address] PCP - General Internal Medicine 03/12/22 documented as of this encounter
== END ==
LOC: HO.CARD 15:16
PROVIDERS: PCP Physician Assistant; Visit Provider Ophthalmology Ophthalmic Plastic and Reconstructive Surgery
DX: H02.831 Dermatochalasis of right upper eyelid (principal)
CPT/HCPCS: 93005

== ENCOUNTER → 2024-09-23 15:30 | Outpatient (BNV) | payer MEDICARE, SELFPAY | PROVIDERS: PCP Physician Assistant; Visit Provider Internal Medicine Cardiovascular Disease | DX: Z13.6 Encounter for screening for cardiovascular disorders (principal); Z01.810 Encounter for preprocedural cardiovascular examination | CPT/HCPCS: 93010 ==